=== PATIENT | female | born 1950 | race Caucasian/White ===

== ENCOUNTER 2016-10-30 10:05 | Inpatient (IN) | payer MEDICARE, OTHER ==
[~2016-10-30] VITALS: Ht 160 cm; Wt 65.7 kg
[2016-10-30] VITALS (8 sets, daily range): BP systolic 121–140; BP diastolic 51–55; PULSE 63–75; RESP 18–22; TEMP 98.4; Ht 160 cm; Wt 65.7 kg
[2016-10-30] MEDS ORDERED: morphine 4 MG/ML VIAL IV STA (10:34)
[2016-10-30] MEDS ORDERED: ONDANSETRON 4 MG INJ IV STA (10:34)
[2016-10-30 10:42] LABS: ADD SCAN DIFF NO
[2016-10-30 10:54] LABS: BASOPHILS % 0.1 % (0.0-2.0); HEMATOCRIT 36.5 % (37.0-47.0); HEMOGLOBIN 12.4 g/dl (12.0-16.0); LYMPHOCYTES # 0.9 10^3/ul (0.8-2.9); LYMPHOCYTES % 6.1 % (15.0-51.0); MEAN CORPUSCULAR HEMOGLOBIN 29.4 pg (29.0-33.0); MEAN CORPUSCULAR VOLUME 86.5 fl (82.0-101.0); MONOCYTE # 1.4 10^3/ul (0.3-0.9); MONOCYTES % 8.8 % (0.0-11.0); NEUTROPHIL # 13.1 10^3/ul (1.6-7.5); NEUTROPHILS % 84.4 % (39.0-77.0); PLATELET COUNT 282 10^3/UL (140-415); RED BLOOD COUNT 4.22 10^6/ul (4.20-5.40); RED CELL DISTRIBUTION WIDTH 13.2 % (11.5-14.5); WHITE BLOOD COUNT 15.5 10^3/ul (4.8-10.8)
[2016-10-30 11:00] LABS: CHLORIDE 99 mmol/L (97-110); POTASSIUM 3.5 mmol/L (3.5-5.1); SODIUM 139 mmol/L (135-144)
--- NOTE | 2016-10-30 11:01 | RADRPT ---
PROCEDURE: XR Chest. CLINICAL INDICATION: Chest Pain. TECHNIQUE: PA and Lateral views of the chest were obtained. COMPARISON: None. FINDINGS: The soft tissues are normal. The bony elements are normal. The heart is borderline enlarged. The cardiomediastinal silhouette and hilar structures are normal. The pulmonary vasculature is normal. A therosclerotic calcification is present in the aortic arch. The lungs are clear. The costophrenic a ngles are normal. IMPRESSION: 1. Borderline cardiomegaly. 2. Atherosclerosis of the aortic arch. 3. No evidence of active cardiopulmonary disease. RPTAT:AAJJ Physician Dinesh Date Time Electronically viewed and signed by Néstor Nj Physician on 10/30/2016 11:01 /
[2016-10-30 11:02] LABS: CREATININE 0.72 mg/dl (0.44-1.00)
[2016-10-30 11:03] LABS: ANION GAP 20 (8-16); BLOOD UREA NITROGEN 19 mg/dl (7-20); CALCIUM 9.2 mg/dl (8.4-10.2); CARBON DIOXIDE 24 mmol/L (21-31); GLUCOSE 137 mg/dl (70-220)
[2016-10-30] MEDS ORDERED: EZET10TA3 PO (11:19)
[2016-10-30] MEDS ORDERED: AMLO-147 PO (11:20)
[2016-10-30] MEDS ORDERED: CHOL100062 PO (11:20)
[2016-10-30] MEDS ORDERED: SERT-165 PO (11:20)
[2016-10-30] MEDS ORDERED: LOSA100T7 PO (11:20)
[2016-10-30] MEDS ORDERED: SIMV20TA PO (11:21)
[2016-10-30] MEDS ORDERED: ASPI-664 PO (11:23)
[2016-10-30] MEDS ORDERED: CARV3.1260 PO (11:24)
[2016-10-30] MEDS ORDERED: OMEP20CA16 PO (11:24)
[2016-10-30] MEDS ORDERED: TRAM-40 PO (11:26)
[2016-10-30 11:34] LABS: TROPONIN-I < 0.012 ng/ml (0.00-0.12)
--- NOTE | 2016-10-30 13:43 | RADRPT ---
PROCEDURE: MRI Brain without contrast. CLINICAL INDICATION: Headache, weakness TECHNIQUE: Routine MRI of the brain performed without intravenous contrast. COMPARISON: None FINDINGS: Diffusion: No evidence of acute infarct, recent ischemia, or recent ictal focus. Hemorrhage: No evidence of focal hematoma or subarachnoid hemorrhage. No evidence for remote blood d egradation products. Mass effect/midline shift: None. Parenchymal volume: Appears within normal limits for the patient's age. Ventricular system: Concordant with the degree of parenchymal volume. Parenchymal signal changes: Nonspecific small scattered areas of T2 and FLAIR signal hyperintensity measuring a few millimeters are seen in the supratentorial white matter most commonly due to chronic moderate microvascular ischemic changes. Differential considerations include sequelae of migraines; prior parenchymal injury from infectious or inflammatory/demyelinating process; vasculopathy. Well- circumscribed T2 hyperintense focus within the left lentiform nucleus likely representing a dilated perivascular space. Partially empty sella configuration is noted. Vasculature: Appropriate flow voids suggesting patency of the central arterial system and visualize d dural venous sinuses. Paranasal sinuses: Clear. Mastoid air cells: Clear. Calvarium: Within normal limits. Extracranial soft tissues: Within normal limits. IMPRESSION: No evidence of diffusion signal abnormalities to suggest acute infarct, recent ischemia, or recent i ctal focus. Nonspecific small scattered areas of T2 and FLAIR signal hyperintensity measuring a few millimeters are seen in the supratentorial white matter most commonly due to chronic moderate microvascular isch emic changes. Differential considerations include sequelae of migraines; prior parenchymal injury fr om infectious or inflammatory/demyelinating process; vasculopathy. RPTAT: AADD .Eddi Campbell MD, MD Date Time Electronically viewed and signed by .Eddi Campbell MD, MD on 10/30/2016 13:43 .B/
--- NOTE | 2016-10-30 15:12 | RADRPT ---
PROCEDURE: MR Cervical Spine contrast. CLINICAL INDICATION: Headache. Right-sided weakness. Status post epidural injection. TECHNIQUE: Multiplanar multisequence MRI of the cervical spine was performed before and following t he intravenous administration of 10 cc of Magnevist. COMPARISON: There are no similar studies submitted for comparison. FINDINGS: There is reversal of the cervical lordosis suggesting muscle spasm and/or degenerative changes. The vertebral body heights are maintained. There is normal alignment. There is no destructive osseous lesion.There is no abnormal bone marrow edema. There is disk desiccation from C2-C3 to C6-C7. There is right dorsolateral T2 hyperintense signal within the spinal cord at the mid C2 level sugges ting edema. At the mid C3 level and there is a focal ovoid T2 hyperintense region extending to the right dorsolateral spinal canal surface (image 9 series 6). Caudal to these regions and there is lo ng segment irregular long segment T2 hypointense signal within the central aspect of the spinal cord eccentric to the right from the C3-C4 level to the T5-T6 levels. This is suggestive of intramedull phong spinal cord hemorrhage. There is also intramedullary edema surrounding the spinal cord hemorrhag e. There is no abnormal spinal cord enhancement. C2-C3 : There is a 1 mm circumferential disk osteophyte complex without spinal canal or bilateral fo raminal stenosis. C3-C4 : There is mild to moderate disk space narrowing. There is a 2 mm circumferential disk osteop hyte complex minimally indenting the spinal cord without spinal canal stenosis. There is moderate l eft facet arthropathy without bilateral foraminal stenosis. C4-C5 : There is mild to moderate disk space narrowing with trace retrolisthesis with a 2 mm broad-b ased disk osteophyte complex contacting the spinal cord without spinal canal stenosis. There is mil d bilateral facet arthropathy and bilateral uncovertebral hypertrophy causing mild to moderate bilat eral foraminal stenosis. C5-C6 : There is mild to moderate disk space narrowing. There is a 2 mm right paracentral disk/oste ophyte complex minimally indenting the spinal cord without spinal canal stenosis. There is mild lef t facet arthropathy and bilateral uncovertebral hypertrophy causing moderate to severe left without right foraminal stenosis. This likely affects the exiting left C6 nerve root. C6-C7 : There is trace retrolisthesis with a 2 mm left paracentral disk/osteophyte complex without s laurie canal stenosis. There is mild bilateral facet arthropathy and bilateral uncovertebral hypertro phy causing moderate to severe left with mild right foraminal stenosis. This likely affects the exi ting left C7 nerve root. C7-T1 : There is no disk herniation or spinal canal stenosis. There is moderate left with mild right facet arthropathy with bilateral uncovertebral hypertrophy causing moderate left without right fora mary stenosis. The paravertebral musculature are within normal limits. IMPRESSION: 1. Right dorsolateral spinal cord edema at the mid C2 level with focal T2 hyperintense signal extend ing to the along the right dorsolateral spinal cord at the mid C3 level. There is long segment intra medullary T2 hypointense signal from the C3-C4 to the T5-T6 level most compatible with spinal cord h emorrhage with surrounding spinal cord edema. 2. Multilevel bilateral foraminal stenosis affecting the exiting left C6 and left C7 nerve roots as detailed above. 3. No abnormal bone marrow edema. 4. No abnormal spinal cord enhancement. Further findings as detailed above. These findings were discussed with Dr. Jn Heller at 03:10 p.m. on October 30, 2016. RPTAT: HVF .Buddy Jules MD, Date Time Electronically viewed and signed by .Buddy Jules MD, on 10/30/2016 15:12 .F/
--- NOTE | 2016-10-30 15:19 | RADRPT ---
PROCEDURE: MR Thoracic Spine contrast. CLINICAL INDICATION: Headache. Right-sided weakness. Status post epidural injection. TECHNIQUE: Multiplanar multisequence MRI of the thoracic spine performed was performed before and following the intravenous administration of 10 cc of Magnevist. COMPARISON: There are no similar studies submitted for comparison. MRI of the cervical spine report from the same day. FINDINGS: There is preservation of the normal thoracic kyphosis. The vertebral body heights are maintained. There is normal alignment. There is no destructive osseous lesion.There is no abnormal bone marrow edema. The discs are normal in height and signal. There is intramedullary T2 hypointense signal as detailed on the MRI of the cervical spine report mo st compatible with spinal cord hemorrhage. There is surrounding intramedullary edema. There is no abnormal spinal cord enhancement. There is no epidural hematoma. There are multilevel minimal disk bulges without spinal canal or bilateral foraminal stenosis. The paraspinal musculature are within normal limits. IMPRESSION: 1. Please refer to the MRI of the cervical spine report. 2. No acute compression fracture or abnormal bone marrow edema. 3. Multilevel minimal disk bulges without spinal canal or bilateral foraminal stenosis. Further findings as detailed above. RPTAT: HVF .Buddy Jules MD, MD Date Time Electronically viewed and signed by .Buddy Jules MD, on 10/30/2016 15:19 .F/
[2016-10-30 15:33] LABS: INR 1.06; PROTIME 13.8 Sec (12.2-14.2); PT RATIO 1.1
--- NOTE | 2016-10-30 15:43 | ERA ---
ER Documentation Chief Complaint Date/Time DATE: 10/30/16 TIME: 10:15 Chief Complaint right side numbness after receiving cervical epidural steroid injection HPI 66-year-old female with history of hypertension, hyperlipidemia and chronic neck pain presents the ED 1 day status post cervical epidural injection complaining of numbness and weakness to her right upper extremity, chest and leg. She awoke after the procedure yesterday with these symptoms but was told it would resolve within 24 hours but they have persisted. Denies chest pain or palpitations. No shortness of breath or cough. No abdominal pain, nausea vomiting. No fevers or chills. ROS All systems reviewed and are negative except as per history of present illness. Medications Home Meds Reported Medications Tramadol Hcl* (Ultram*) 50 Mg Tablet, 50 MG PO Q6H Y for PAIN, TAB 10/30/16 Omeprazole* (Omeprazole*) 20 Mg Capsule.dr, 20 MG PO DAILY, #30 CAP 10/30/16 Carvedilol* (Carvedilol*) 3.125 Mg Tablet, 3.125 MG PO BID, #60 TAB 10/30/16 Aspirin* (Aspirin* EC) 81 Mg Tablet.dr, 81 MG PO DAILY, TAB 10/30/16 Simvastatin* (Zocor*) 20 Mg Tablet, 20 MG PO QHS, #30 TAB 10/30/16 Cholecalciferol* (Vitamin D3*) 1,000 Unit Tablet, 1000 UNIT PO DAILY, TAB 10/30/16 Sertraline Hcl* (Sertraline Hcl*) 100 Mg Tablet, 100 MG PO DAILY, #30 TAB 10/30/16 Losartan Potassium* (Losartan Potassium*) 100 Mg Tablet, 100 MG PO DAILY, TAB 10/30/16 Amlodipine Besylate* (Amlodipine Besylate*) 10 Mg Tablet, 10 MG PO DAILY, #30 TAB 10/30/16 Ezetimibe* (Zetia*) 10 Mg Tablet, 10 MG PO HS, TAB 10/30/16 Allergies Allergies: Coded Allergies: No Known Allergy (Unverified , 07/22/14) PMhx/Soc Reviewed in chart History of Surgery: Yes (right shoulder surgery) Hx Cardiac Disorders: Yes (HTN; cholesterolemia) Hx Psychiatric Problems: Yes (depression) Hx Miscellaneous Medical Probl: Yes (ARTHRITIS ; sciatica; gastric ulcer) Hx Alcohol Use: No Hx Substance Use: No Hx Tobacco Use: No Smoking Status: Never smoker FmHx Not relevant to presenting complaint Physical Exam Vitals Vital Signs Date Time Temp Pulse Resp B/P Pulse Ox O2 Delivery O2 Flow Rate FiO2 10/30/16 12:25 66 18 144/54 97 Room Air 10/30/16 10:30 68 19 137/67 98 Room Air 10/30/16 10:15 98.0 73 19 141/51 99 Physical Exam Const: Alert, moderate to severe distress. Head: Atraumatic Eyes: Normal Conjunctiva ENT: Normal External Ears, Nose and Mouth. Neck: Diffuse posterior tenderness. No step-off. No erythema or induration. Resp: Breath sounds are equal and clear to auscultation bilaterally Cardio: Regular rate and rhythm, no murmurs Abd: Soft, non tender, non distended. Normal bowel sounds Skin: No petechiae or rashes Back: No midline or flank tenderness Ext: No cyanosis, or edema Neur: Awake and alert. Cranial nerves II through XII are grossly intact. Motor strength: distal upper extremity 4/5 and proximal upper extremity 1/5. Right lower extremity motor strength 4/5. Decreased sensation right upper extremity right hemithorax . Psych: Patient appears anxious but not depressed. Result Diagram: 10/30/16 1040 10/30/16 1040 Results 24 hrs Laboratory Tests Test 10/30/16 10:40 White Blood Count 15.510^3/ul Red Blood Count 4.2210^6/ul Hemoglobin 12.4g/dl Hematocrit 36.5% Mean Corpuscular Volume 86.5fl Mean Corpuscular Hemoglobin 29.4pg Mean Corpuscular Hemoglobin Concent 34.0g/dl Red Cell Distribution Width 13.2% Platelet Count 30012^3/UL Mean Platelet Volume 10.0fl Neutrophils % 84.4% Lymphocytes % 6.1% Monocytes % 8.8% Eosinophils % 0.0% Basophils % 0.1% Nucleated Red Blood Cells % 0.0/100WBC Neutrophils # 13.110^3/ul Lymphocytes # 0.910^3/ul Monocytes # 1.410^3/ul Eosinophils # 0.010^3/ul Basophils # 0.010^3/ul Nucleated Red Blood Cells # 0.010^3/ul Prothrombin Time 13.8Sec Prothrombin Time Ratio 1.1 INR International Normalized Ratio 1.06 Activated Partial Thromboplast Time 25.0Sec Sodium Level 139mmol/L Potassium Level 3.5mmol/L Chloride Level 99mmol/L Carbon Dioxide Level 24mmol/L Anion Gap 20 Blood Urea Nitrogen 19mg/dl Creatinine 0.72mg/dl Glucose Level 137mg/dl Calcium Level 9.2mg/dl Troponin I < 0.012ng/ml Current Medications Medications (Trade) Dose Ordered Sig/Sharon Route PRN Reason Start Time Stop Time Status Last Admin Dose Admin Morphine Sulfate (morphine) 4 mg ONCE STAT IV 10/30/16 10:34 10/30/16 10:35 DC 10/30/16 10:52 Ondansetron HCl (Zofran Inj) 4 mg ONCE STAT IV 10/30/16 10:34 10/30/16 10:35 DC 10/30/16 10:52 Dexamethasone (Decadron) 10 mg ONCE ONCE IV 10/30/16 16:00 10/30/16 16:01 DC EKG: Time: 10: 37. Sinus rhythm. Ventricular rate 69, normal GA and QRS intervals. No acute ST segment elevation or depression. No axis deviation or ectopy. EP Impression: Normal EKG IMAGING: ROCEDURE: MRI Brain without contrast. CLINICAL INDICATION: Headache, weakness TECHNIQUE: Routine MRI of the brain performed without intravenous contrast. COMPARISON: None FINDINGS: Diffusion: No evidence of acute infarct, recent ischemia, or recent ictal focus. Hemorrhage: No evidence of focal hematoma or subarachnoid hemorrhage. No evidence for remote blood degradation products. Mass effect/midline shift: None. Parenchymal volume: Appears within normal limits for the patient's age. Ventricular system: Concordant with the degree of parenchymal volume. Parenchymal signal changes: Nonspecific small scattered areas of T2 and FLAIR signal hyperintensity measuring a few millimeters are seen in the supratentorial white matter most commonly due to chronic moderate microvascular ischemic changes. Differential considerations include sequelae of migraines; prior parenchymal injury from infectious or inflammatory/demyelinating process; vasculopathy. Well-circumscribed T2 hyperintense focus within the left lentiform nucleus likely representing a dilated perivascular space. Partially empty sella configuration is noted. Vasculature: Appropriate flow voids suggesting patency of the central arterial system and visualized dural venous sinuses. Paranasal sinuses: Clear. Mastoid air cells: Clear. Calvarium: Within normal limits. Extracranial soft tissues: Within normal limits. IMPRESSION: No evidence of diffusion signal abnormalities to suggest acute infarct, recent ischemia, or recent ictal focus. Nonspecific small scattered areas of T2 and FLAIR signal hyperintensity measuring a few millimeters are seen in the supratentorial white matter most commonly due to chronic moderate microvascular ischemic changes. Differential considerations include sequelae of migraines; prior parenchymal injury from infectious or inflammatory/demyelinating process; vasculopathy. RPTAT: AADD .Eddi Campbell MD, MD Date Time Electronically viewed and signed by .Eddi Campbell MD, MD on 10/30/2016 13:43 .B/ PROCEDURE: MR Cervical Spine contrast. CLINICAL INDICATION: Headache. Right-sided weakness. Status post epidural injection. TECHNIQUE: Multiplanar multisequence MRI of the cervical spine was performed before and following the intravenous administration of 10 cc of Magnevist. COMPARISON: There are no similar studies submitted for comparison. FINDINGS: There is reversal of the cervical lordosis suggesting muscle spasm and/or degenerative changes. The vertebral body heights are maintained. There is normal alignment. There is no destructive osseous lesion.There is no abnormal bone marrow edema. There is disk desiccation from C2-C3 to C6-C7. There is right dorsolateral T2 hyperintense signal within the spinal cord at the mid C2 level suggesting edema. At the mid C3 level and there is a focal ovoid T2 hyperintense region extending to the right dorsolateral spinal canal surface (image 9 series 6). Caudal to these regions and there is long segment irregular long segment T2 hypointense signal within the central aspect of the spinal cord eccentric to the right from the C3-C4 level to the T5-T6 levels. This is suggestive of intramedullary spinal cord hemorrhage. There is also intramedullary edema surrounding the spinal cord hemorrhage. There is no abnormal spinal cord enhancement. C2-C3 : There is a 1 mm circumferential disk osteophyte complex without spinal canal or bilateral foraminal stenosis. C3-C4 : There is mild to moderate disk space narrowing. There is a 2 mm circumferential disk osteophyte complex minimally indenting the spinal cord without spinal canal stenosis. There is moderate left facet arthropathy without bilateral foraminal stenosis. C4-C5 : There is mild to moderate disk space narrowing with trace retrolisthesis with a 2 mm broad-based disk osteophyte complex contacting the spinal cord without spinal canal stenosis. There is mild bilateral facet arthropathy and bilateral uncovertebral hypertrophy causing mild to moderate bilateral foraminal stenosis. C5-C6 : There is mild to moderate disk space narrowing. There is a 2 mm right paracentral disk/osteophyte complex minimally indenting the spinal cord without spinal canal stenosis. There is mild left facet arthropathy and bilateral uncovertebral hypertrophy causing moderate to severe left without right foraminal stenosis. This likely affects the exiting left C6 nerve root. C6-C7 : There is trace retrolisthesis with a 2 mm left paracentral disk/ osteophyte complex without spinal canal stenosis. There is mild bilateral facet arthropathy and bilateral uncovertebral hypertrophy causing moderate to severe left with mild right foraminal stenosis. This likely affects the exiting left C7 nerve root. C7-T1 : There is no disk herniation or spinal canal stenosis. There is moderate left with mild right facet arthropathy with bilateral uncovertebral hypertrophy causing moderate left without right foraminal stenosis. The paravertebral musculature are within normal limits. IMPRESSION: 1. Right dorsolateral spinal cord edema at the mid C2 level with focal T2 hyperintense signal extending to the along the right dorsolateral spinal cord at the mid C3 level. There is long segment intramedullary T2 hypointense signal from the C3-C4 to the T5-T6 level most compatible with spinal cord hemorrhage with surrounding spinal cord edema. 2. Multilevel bilateral foraminal stenosis affecting the exiting left C6 and left C7 nerve roots as detailed above. 3. No abnormal bone marrow edema. 4. No abnormal spinal cord enhancement. Further findings as detailed above. These findings were discussed with Dr. Merrick Bonds at 03:10 p.m. on October 30, 2016. RPTAT: HVF .Buddy Jules MD, Date Time Electronically viewed and signed by .Buddy Jules MD, on 10/30/2016 15:12 .F/ PROCEDURE: MR Thoracic Spine contrast. CLINICAL INDICATION: Headache. Right-sided weakness. Status post epidural injection. TECHNIQUE: Multiplanar multisequence MRI of the thoracic spine performed was performed before and following the intravenous administration of 10 cc of Magnevist. COMPARISON: There are no similar studies submitted for comparison. MRI of the cervical spine report from the same day. FINDINGS: There is preservation of the normal thoracic kyphosis. The vertebral body heights are maintained. There is normal alignment. There is no destructive osseous lesion.There is no abnormal bone marrow edema. The discs are normal in height and signal. There is intramedullary T2 hypointense signal as detailed on the MRI of the cervical spine report most compatible with spinal cord hemorrhage. There is surrounding intramedullary edema. There is no abnormal spinal cord enhancement. There is no epidural hematoma. There are multilevel minimal disk bulges without spinal canal or bilateral foraminal stenosis. The paraspinal musculature are within normal limits. IMPRESSION: 1. Please refer to the MRI of the cervical spine report. 2. No acute compression fracture or abnormal bone marrow edema. 3. Multilevel minimal disk bulges without spinal canal or bilateral foraminal stenosis. Further findings as detailed above. RPTAT: HVF .Buddy Jules MD, MD Date Time Electronically viewed and signed by .Buddy Jules MD, MD on 10/30/2016 15:19 .F/ Procedures/MDM DOCUMENTS REVIEWED: ED nurse, prior ED. MEDICAL DECISION MAKIN-year-old female with history of hypertension, hyperlipidemia and chronic neck pain presents the ED 1 day status post cervical epidural injection complaining of numbness and weakness to her right upper extremity, chest and leg. 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 Counseled patient and family regarding diagnosis, diagnostic results and plan for admission. CALLS/CONSULTS: Time 15:14, Dr. Arango, Recommends Decadron and ICU admission. CALLS/CONSULTS: Time 15:14, Dr. Levokic. PATIENT CARE TRANSITIONED: Time: 15:55, Dr. Brown. Critical Care Time: 35 minutes Treatments/Evaluations: Close monitoring and treatment of unstable vital signs, cardiorespiratory, and neurologic status, while maintaining tight balance of fluid, respiratory, and cardiac interventions. This time includes discussing the case with the patient and the patient's family. This time does not include all procedures stated elsewhere in this record. This time also includes reviewing old records, labs and radiological studies. This time includes examining and re-examining the patient. Additionally, this time also includes arranging care with admitting and consulting physicians. Departure Diagnosis: Primary Impression: Traumatic spinal cord hemorrhage Additional Impressions: Status post epidural steroid injection Essential hypertension Condition: Critical MERRICK BONDS MD October 30, 2016 15:38
[2016-10-30] MEDS ORDERED: DEXAMETHASONE 10 MG/ML 1 ML INJ IV ONE (16:00)
--- NOTE | 2016-10-30 17:17 | HP ---
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 Right-sided numbness and weakness likely secondary to 2, C3-C4 to the T5-T6 Spinal cord hemorrhage with surrounding spinal cord edema likely 2/2 injection 2. High blood pressure: Controlled 3. Dyslipidemia: Statin and Zetia 4. GERD: Stable 5. Chronic depression: Stable 6. Leukocytosis likely steroid-induced Plan: * Admit ICU for further workup and close management * Will start Dexamethasone 4mg IV q6H * Per ER, neurosurgical consultation has been obtained with Dr. Dalton, will await and follow recommendations * Continue all home medications * Further interventions will depend on clinical course Prophylaxis: SCDs and PPI HPI/ROS Admit Date/Time Admit Date/Time 10/30/16 Hx of Present Illness 66-year-old female with history of hypertension, hyperlipidemia and chronic neck pain presents the ED 1 day status post cervical epidural injection complaining of numbness and weakness to her right upper extremity, chest and leg. She awoke after the procedure yesterday with these symptoms but was told it would resolve within 24 hours but they have persisted. Denies chest pain or palpitations. No shortness of breath or cough. No abdominal pain, nausea vomiting. No fevers or chills. ROS 12 point review if systems was done and pertinent findings are as noted. ROS: CONSTITUTIONAL: lethargy HEENT: denies headaches, any vertigo, any sore throat or rhinorrhea. Eyes: No double or blurred vision or eye pain. CARDIOVASCULAR: no chest discomfort, chest pain, irregular rhythm, tachycardia or diaphoresis. RESPIRATORY: denies cough or shortness of breath or wheezing. GASTROINTESTINAL: The patient denies any nausea, vomiting, diarrhea or abdominal pain. GENITOURINARY: denies dysuria, frequency, urgency or hematuria. MUSCULOSKELETAL: chronic arthralgias SKIN: denies rash or jaundice NEUROLOGIC: see HPI PSYCHIATRIC: denies any suicidal ideation. substance abuse. PMH/Family/Social Past Medical History Medical History: GI bleed, high cholesterol, hypertension, other (depression) Past Surgical History * R shoulder surgery Social History Alcohol Use: none Smoking Status: Never smoker Drug Use: none Exam/Review of Systems Vital Signs Vitals Vital Signs Date Time Temp Pulse Resp B/P Pulse Ox O2 Delivery O2 Flow Rate FiO2 10/30/16 15:00 98.4 62 18 130/56 97 Room Air Exam Exam GENERAL: Patient is alert, oriented x 3, in no apparent distress; does not appear acutely or chronically ill. Patient is able to sit up unassisted.Patient makes good eye contact, is conversant, interactive, coherent. Patient appears calm and comfortable and is able to follow commands. HEENT: Oropharynx is clear. There is no carotid bruit, no masses. Patient's pupils are equal, round and reactive to light bilaterally. Extraocular motions are intact. There is no scleral icterus. There is no facial asymmetry. NECK: Supple. LUNGS: Clear to auscultation bilaterally with good air entry. No Wheezes or crackles. HEART: S1, S2. No murmur, gallops or rubs. Regular rate and rhythm. ABDOMEN: Soft, nontender. Normoactive bowel sounds. There are no stigmata of chronic liver disease. BACK: no costovertebral angle tenderness. GENITOURINARY: Deferred. EXTREMITIES: No edema. There is no cyanosis, clubbing. There are 2+ pulses bilaterally distally. NEUROLOGIC: Motor strength: distal upper extremity 4/5 and proximal upper extremity 1/5. Right lower extremity motor strength 4/5. Decreased sensation right upper extremity right hemithorax . SKIN: Otherwise, unremarkable. Labs Result Diagram: 10/30/16 1040 10/30/16 1040 Procedures Procedures Laboratory Tests Test 10/30/16 10:40 10/30/16 15:25 White Blood Count 15.510^3/ul Red Blood Count 4.2210^6/ul Hemoglobin 12.4g/dl Hematocrit 36.5% Mean Corpuscular Volume 86.5fl Mean Corpuscular Hemoglobin 29.4pg Mean Corpuscular Hemoglobin Concent 34.0g/dl Red Cell Distribution Width 13.2% Platelet Count 51680^3/UL Mean Platelet Volume 10.0fl Neutrophils % 84.4% Lymphocytes % 6.1% Monocytes % 8.8% Eosinophils % 0.0% Basophils % 0.1% Nucleated Red Blood Cells % 0.0/100WBC Neutrophils # 13.110^3/ul Lymphocytes # 0.910^3/ul Monocytes # 1.410^3/ul Eosinophils # 0.010^3/ul Basophils # 0.010^3/ul Nucleated Red Blood Cells # 0.010^3/ul Prothrombin Time 13.8Sec Prothrombin Time Ratio 1.1 INR International Normalized Ratio 1.06 Activated Partial Thromboplast Time 25.0Sec Sodium Level 139mmol/L Potassium Level 3.5mmol/L Chloride Level 99mmol/L Carbon Dioxide Level 24mmol/L Anion Gap 20 Blood Urea Nitrogen 19mg/dl Creatinine 0.72mg/dl Glucose Level 137mg/dl Calcium Level 9.2mg/dl Troponin I < 0.012ng/ml Platelet Func Collagen/Epinephrine 167Secs. Platelet Function Collagen/ADP Secs. PROCEDURE: XR Chest. CLINICAL INDICATION: Chest Pain. TECHNIQUE: PA and Lateral views of the chest were obtained. COMPARISON: None. FINDINGS: The soft tissues are normal. The bony elements are normal. The heart is borderline enlarged. The cardiomediastinal silhouette and hilar structures are normal. The pulmonary vasculature is normal. Atherosclerotic calcification is present in the aortic arch. The lungs are clear. The costophrenic angles are normal. IMPRESSION: 1. Borderline cardiomegaly. 2. Atherosclerosis of the aortic arch. 3. No evidence of active cardiopulmonary disease. RPTAT:AAJJ Physician Dinesh Date Time Electronically viewed and signed by Néstor Nj Physician on 10/30/2016 11:01 JM/ CC: MERRICK BONDS MD PROCEDURE: MR Cervical Spine contrast. IMPRESSION: 1. Right dorsolateral spinal cord edema at the mid C2 level with focal T2 hyperintense signal extending to the along the right dorsolateral spinal cord at the mid C3 level. There is long segment intramedullary T2 hypointense signal from the C3-C4 to the T5-T6 level most compatible with spinal cord hemorrhage with surrounding spinal cord edema. 2. Multilevel bilateral foraminal stenosis affecting the exiting left C6 and left C7 nerve roots as detailed above. 3. No abnormal bone marrow edema. 4. No abnormal spinal cord enhancement. Further findings as detailed above. These findings were discussed with Dr. Merrick Bonds at 03:10 p.m. on October 30, 2016. RPTAT: HVF .Buddy Jules MD, MD Date Time Electronically viewed and signed by .Buddy Jules MD, MD on 10/30/2016 15:12 .F/ CC: MERRICK BONDS MD PROCEDURE: MR Thoracic Spine contrast. IMPRESSION: 1. Please refer to the MRI of the cervical spine report. 2. No acute compression fracture or abnormal bone marrow edema. 3. Multilevel minimal disk bulges without spinal canal or bilateral foraminal stenosis. Further findings as detailed above. RPTAT: HVF .Buddy Jules MD, MD Date Time Electronically viewed and signed by .Buddy Jules MD, MD on 10/30/2016 15:19 PROCEDURE: MRI Brain without contrast. IMPRESSION: No evidence of diffusion signal abnormalities to suggest acute infarct, recent ischemia, or recent ictal focus. Nonspecific small scattered areas of T2 and FLAIR signal hyperintensity measuring a few millimeters are seen in the supratentorial white matter most commonly due to chronic moderate microvascular ischemic changes. Differential considerations include sequelae of migraines; prior parenchymal injury from infectious or inflammatory/demyelinating process; vasculopathy. TAD LÓPEZ October 30, 2016 17:11
[2016-10-30] MEDS ORDERED: DOCUSATE SODIUM 100 MG CAP PO PRN (17:30)
[2016-10-30] MEDS ORDERED: ONDANSETRON 4 MG INJ IV PRN (17:30)
[2016-10-30] MEDS: DEXAMETHASONE 4 MG/ML 1 ML INJ IV SCH ×2 (17:39→23:55)
[2016-10-30] MEDS: HYDROCODONE/APAP (5/325) TAB PO PRN (18:11)
[2016-10-30] MEDS: traMADol 50 MG TAB PO PRN (20:50)
[2016-10-30] MEDS: EZETIMIBE 10 MG TAB PO SCH (20:50)
[2016-10-30] MEDS: ATORVASTATIN 10 MG TAB PO SCH (20:51)
[2016-10-31] VITALS (21 sets, daily range): BP systolic 114–151; BP diastolic 49–78; PULSE 56–70; RESP 13–20
[2016-10-31] MEDS: HYDROCODONE/APAP (5/325) TAB PO PRN ×3 (04:45→22:45)
[2016-10-31] MEDS: PANTOPRAZOLE (EC) 40 MG TAB PO SCH (05:12)
[2016-10-31] MEDS: DEXAMETHASONE 4 MG/ML 1 ML INJ IV SCH ×3 (05:12→17:40)
[2016-10-31 05:16] LABS: ALBUMIN 4.2 g/dl (3.3-4.9); BILIRUBIN,INDIRECT 0.5 mg/dl (0-1.1); BILIRUBIN,TOTAL 0.5 mg/dl (0.2-1.3); CALCIUM 8.9 mg/dl (8.4-10.2); CREATININE 0.67 mg/dl (0.44-1.00); MAGNESIUM 2.3 mg/dl (1.7-2.5); TOTAL PROTEIN 7.6 g/dl (6.1-8.1)
[2016-10-31 05:46] LABS: THYROID STIMULATING HORMONE 1.74 MIU/L (0.465-4.680)
[2016-10-31] MEDS: AMLODIPINE 10 MG TAB PO SCH (08:22)
[2016-10-31] MEDS: CHOLECALCIFEROL 1,000 UNIT TAB PO SCH (08:22)
[2016-10-31] MEDS: SERTRALINE 100 MG TAB PO SCH (08:22)
[2016-10-31] MEDS: LOSARTAN 50 MG TAB PO SCH (08:23)
[2016-10-31] MEDS ORDERED: ASPIRIN (EC) 81 MG TAB PO SCH (09:00)
[2016-10-31] MEDS: traMADol 50 MG TAB PO PRN ×2 (10:57→21:06)
[2016-10-31 11:33] LABS: ADD SCAN DIFF NO
[2016-10-31 11:37] LABS: BASOPHILS % 0.1 % (0.0-2.0); HEMATOCRIT 36.8 % (37.0-47.0); HEMOGLOBIN 12.2 g/dl (12.0-16.0); LYMPHOCYTES # 0.7 10^3/ul (0.8-2.9); LYMPHOCYTES % 6.9 % (15.0-51.0); MEAN CORPUSCULAR HEMOGLOBIN 29.4 pg (29.0-33.0); MEAN CORPUSCULAR HGB CONC 33.2 g/dl (32.0-37.0); MEAN CORPUSCULAR VOLUME 88.7 fl (82.0-101.0); MEAN PLATELET VOLUME 10.8 fl (7.4-10.4); MONOCYTE # 0.4 10^3/ul (0.3-0.9); MONOCYTES % 3.5 % (0.0-11.0); NEUTROPHIL # 9.1 10^3/ul (1.6-7.5); NEUTROPHILS % 89.1 % (39.0-77.0); PLATELET COUNT 296 10^3/UL (140-415); RED BLOOD COUNT 4.15 10^6/ul (4.20-5.40); RED CELL DISTRIBUTION WIDTH 13.5 % (11.5-14.5); WHITE BLOOD COUNT 10.2 10^3/ul (4.8-10.8)
--- NOTE | 2016-10-31 12:26 | CONS ---
Date/Time of Note Date/Time of Note DATE: 10/31/16 TIME: 12:14 Assessment/Plan Assessment/Plan Additional Assessment/Plan IMP/PLAN: intramedullary hemorrhage, possibly iatrogenic. ? procedure performed (rhizotomy? epidural injection?). I did call Dr. Angel's office at and left a message for the doctor information architect to get more information about the procedure performed, but I have not heard back yet. Patient's symptoms are stable or improving. The patient was on a baby aspirin at the time of the procedure and this has been held. I would recommend avoiding any anti- coagulation. There is absolutely no role for any kind of neurosurgical intervention at the present time. The patient is cleared for transfer out of the ICU and to begin therapist evaluation/ ARU eval. Thank you. Consultation Date/Type/Reason Admit Date/Time 10/30/16 Date of Consultation: October 31, 2016 Type of Consultation: neurological surgery Reason for Consultation spinal cord hemorrhage Hx of Present Illness The patient is a 66 year female with a history of "spine injection" on Tuesday, October 29 at an outpatient center in [place]. The patient reports that immediately following the procedure she complained of intense pain at the injection site and right sided weakness and numbness (also on right side). She was subsequently discharged home. She presented to the ED last night with persistent complaints of RUE weakness and right sided numbness. MRI of the cervical spine shows intramedullary hemorrhage. The patient was admitted for close neurological observation to the ICU. Both strength and sensation have improved since admission. Past Medical History Medical History: GI bleed, high cholesterol, hypertension, other (depression) Social History Alcohol Use: none Smoking Status: Never smoker Drug Use: none Exam/Review of Systems Vital Signs Vitals Vital Signs Date Time Temp Pulse Resp B/P Pulse Ox O2 Delivery O2 Flow Rate FiO2 10/31/16 10:00 70 15 147/66 97 Room Air 10/31/16 08:00 98.5 Intake and Output 10/30/16 10/30/16 10/31/16 15:00 23:00 07:00 Intake Total 100 ml 200 ml Output Total 250 ml 500 ml Balance -150 ml -300 ml Exam On exam the patient is awake and alert, speech is fluent and appropriate. CN exam includes EOMI, Face= PERRL, TML. The patient is right handed. Motor exam is 5/5 LUE & LLE RUE 4/5 shoulder abduction, 4/5 biceps, 3/5 triceps, 2/5 wrist flesion, 0/5 wrist extension, 0/5 finger extension, 0/5 edge polisher. Sensation is intact to LT, pressure, and cold temperature bilaterally UE and LE. She may have allodynia left shoulder. No other dysesthesias noted. B/B intact (no complaints) Results Result Diagram: 10/31/16 0435 10/31/16 0435 Results 24 hrs Laboratory Tests Test 10/30/16 15:25 10/31/16 04:35 Platelet Func Collagen/Epinephrine 167 Platelet Function Collagen/ADP White Blood Count 10.2 # Red Blood Count 4.15 L Hemoglobin 12.2 Hematocrit 36.8 L Mean Corpuscular Volume 88.7 Mean Corpuscular Hemoglobin 29.4 Mean Corpuscular Hemoglobin Concent 33.2 Red Cell Distribution Width 13.5 Platelet Count 296 Mean Platelet Volume 10.8 H Neutrophils % 89.1 H Lymphocytes % 6.9 L Monocytes % 3.5 Eosinophils % 0.0 Basophils % 0.1 Nucleated Red Blood Cells % 0.0 Neutrophils # 9.1 H Lymphocytes # 0.7 L Monocytes # 0.4 Eosinophils # 0.0 Basophils # 0.0 Nucleated Red Blood Cells # 0.0 Sodium Level 136 Potassium Level 4.0 Chloride Level 103 Carbon Dioxide Level 26 Anion Gap 11 # Blood Urea Nitrogen 23 H Creatinine 0.67 Glucose Level 142 Calcium Level 8.9 Magnesium Level 2.3 Total Bilirubin 0.5 Direct Bilirubin 0.00 Indirect Bilirubin 0.5 Aspartate Amino Transf (AST/SGOT) 32 Alanine Aminotransferase (ALT/SGPT) 40 Alkaline Phosphatase 103 Total Protein 7.6 Albumin 4.2 Thyroid Stimulating Hormone (TSH) 1.740 Medications Medications Current Medications Amlodipine Besylate (Norvasc) 10 mg DAILY PO Last administered on 10/31/16 08: 22; Admin Dose 10 MG; Start 10/31/16 at 09:00 Carvedilol (Coreg) 3.125 mg BID PO Last administered on 10/31/16 08:23; Admin Dose 3.125 MG; Start 10/30/16 at 21:00 Cholecalciferol (Vitamin D) 1,000 unit DAILY PO Last administered on 10/31/16 08:22; Admin Dose 1,000 UNIT; Start 10/31/16 at 09:00 EZETIMIBE (Zetia) 10 mg HS PO Last administered on 10/30/16 20:50; Admin Dose 10 MG; Start 10/30/16 at 21:00 Losartan Potassium (Cozaar) 100 mg DAILY PO Last administered on 10/31/16 08:23 ; Admin Dose 100 MG; Start 10/31/16 at 09:00 Sertraline HCl (Zoloft) 100 mg DAILY PO Last administered on 10/31/16 08:22; Admin Dose 100 MG; Start 10/31/16 at 09:00 Tramadol HCl (Ultram) 50 mg Q6H PRN PO PAIN Last administered on 10/31/16 10:57 ; Admin Dose 50 MG; Start 10/30/16 at 17:30 Pantoprazole (Protonix Tab) 40 mg DAILY@06 PO Last administered on 10/31/16 05: 12; Admin Dose 40 MG; Start 10/31/16 at 06:00 Atorvastatin Calcium (Lipitor) 10 mg DAILY@21 PO Last administered on 10/30/16 20:51; Admin Dose 10 MG; Start 10/30/16 at 21:00 Dexamethasone (Decadron) 4 mg Q6 IV Last administered on 10/31/16 12:08; Admin Dose 4 MG; Start 10/30/16 at 18:00 Ondansetron HCl (Zofran Inj) 4 mg Q6H PRN IV NAUSEA AND/OR VOMITING; Start 10/30 at 17:30 Acetaminophen/ Hydrocodone Bitart ([place] (5/325)) 1 tab Q6H PRN PO pain Last administered on 10/31/16 04:45; Admin Dose 1 TAB; Start 10/30/16 at 17:30 Docusate Sodium (Colace) 200 mg DAILY PRN PO CONSTIPATION; Start 10/30/16 at 17: 30 DOROTEO MEREDITH MD October 31, 2016 12:25
--- NOTE | 2016-10-31 14:52 | PN ---
Date/Time of Note Date/Time of Note DATE: 10/31/16 TIME: 14:45 Assessment/Plan VTE Prophylaxis VTE Prophylaxis Intervention: SCD's Lines/Catheters IV Catheter Type (from Nrsg): Saline Lock Assessment/Plan Assessment/Plan 66-year-old female status post cervical epidural injection yesterday, (? indication ) with post procedure pain and r sided hemiparesis managed as follows : 1. Right-sided numbness and weakness likely secondary to 2, C3-C4 to the T5-T6 Spinal cord hemorrhage with surrounding spinal cord edema likely 2/2 injection 2. High blood pressure: Controlled 3. Dyslipidemia: Statin and Zetia 4. GERD: Stable 5. Chronic depression: Stable 6. Leukocytosis likely stress-induced Plan: * Appreciate Neurosurgical input, patient has been cleared for transfer out of ICU * Continue steroids for now . * Monitor closely. * Stat imaging and review if paresis worsens * No more aspirin or anticoagulation for now / will need neuro checks / PT and ARU eval * Continue all other home medications * Further interventions will depend on clinical course Prophylaxis: SCDs and PPI Subjective 24 Hr Interval Summary Free Text/Dictation Patient seen and examined. States she feels no change, but symptoms have not worsened. Patient seems better able to move R leg on observation Exam/Review of Systems Vital Signs Vitals Vital Signs Date Time Temp Pulse Resp B/P Pulse Ox O2 Delivery O2 Flow Rate FiO2 10/31/16 12:00 98.0 61 20 126/52 95 Room Air Intake and Output 10/30/16 10/30/16 10/31/16 14:59 22:59 06:59 Intake Total 100 ml 200 ml Output Total 250 ml 500 ml Balance -150 ml -300 ml Exam GENERAL: Patient is alert, oriented x 3, in no apparent distress; does not appear acutely or chronically ill. Patient is able to sit up unassisted.Patient makes good eye contact, is conversant, interactive, coherent. Patient appears calm and comfortable and is able to follow commands. HEENT: Oropharynx is clear. There is no carotid bruit, no masses. Patient's pupils are equal, round and reactive to light bilaterally. Extraocular motions are intact. There is no scleral icterus. There is no facial asymmetry. NECK: Supple. LUNGS: Clear to auscultation bilaterally with good air entry. No Wheezes or crackles. HEART: S1, S2. No murmur, gallops or rubs. Regular rate and rhythm. ABDOMEN: Soft, nontender. Normoactive bowel sounds. There are no stigmata of chronic liver disease. BACK: no costovertebral angle tenderness. GENITOURINARY: Deferred. EXTREMITIES: No edema. There is no cyanosis, clubbing. There are 2+ pulses bilaterally distally. NEUROLOGIC: Motor strength: distal upper extremity 4/5 and proximal upper extremity 1/5. Right lower extremity motor strength 4/5. Decreased sensation right upper extremity right hemithorax . SKIN: Otherwise, unremarkable. Results Result Diagram: 10/31/16 0435 10/31/16 0435 Results 24 hrs Laboratory Tests Test 10/30/16 15:25 10/31/16 04:35 Platelet Func Collagen/Epinephrine 167 Platelet Function Collagen/ADP White Blood Count 10.2 # Red Blood Count 4.15 L Hemoglobin 12.2 Hematocrit 36.8 L Mean Corpuscular Volume 88.7 Mean Corpuscular Hemoglobin 29.4 Mean Corpuscular Hemoglobin Concent 33.2 Red Cell Distribution Width 13.5 Platelet Count 296 Mean Platelet Volume 10.8 H Neutrophils % 89.1 H Lymphocytes % 6.9 L Monocytes % 3.5 Eosinophils % 0.0 Basophils % 0.1 Nucleated Red Blood Cells % 0.0 Neutrophils # 9.1 H Lymphocytes # 0.7 L Monocytes # 0.4 Eosinophils # 0.0 Basophils # 0.0 Nucleated Red Blood Cells # 0.0 Sodium Level 136 Potassium Level 4.0 Chloride Level 103 Carbon Dioxide Level 26 Anion Gap 11 # Blood Urea Nitrogen 23 H Creatinine 0.67 Glucose Level 142 Calcium Level 8.9 Magnesium Level 2.3 Total Bilirubin 0.5 Direct Bilirubin 0.00 Indirect Bilirubin 0.5 Aspartate Amino Transf (AST/SGOT) 32 Alanine Aminotransferase (ALT/SGPT) 40 Alkaline Phosphatase 103 Total Protein 7.6 Albumin 4.2 Thyroid Stimulating Hormone (TSH) 1.740 Medications Medications Current Medications Amlodipine Besylate (Norvasc) 10 mg DAILY PO Last administered on 10/31/16 08: 22; Admin Dose 10 MG; Start 10/31/16 at 09:00 Carvedilol (Coreg) 3.125 mg BID PO Last administered on 10/31/16 08:23; Admin Dose 3.125 MG; Start 10/30/16 at 21:00 Cholecalciferol (Vitamin D) 1,000 unit DAILY PO Last administered on 10/31/16 08:22; Admin Dose 1,000 UNIT; Start 10/31/16 at 09:00 EZETIMIBE (Zetia) 10 mg HS PO Last administered on 10/30/16 20:50; Admin Dose 10 MG; Start 10/30/16 at 21:00 Losartan Potassium (Cozaar) 100 mg DAILY PO Last administered on 10/31/16 08:23 ; Admin Dose 100 MG; Start 10/31/16 at 09:00 Sertraline HCl (Zoloft) 100 mg DAILY PO Last administered on 10/31/16 08:22; Admin Dose 100 MG; Start 10/31/16 at 09:00 Tramadol HCl (Ultram) 50 mg Q6H PRN PO PAIN Last administered on 10/31/16 10:57 ; Admin Dose 50 MG; Start 10/30/16 at 17:30 Pantoprazole (Protonix Tab) 40 mg DAILY@06 PO Last administered on 10/31/16 05: 12; Admin Dose 40 MG; Start 10/31/16 at 06:00 Atorvastatin Calcium (Lipitor) 10 mg DAILY@21 PO Last administered on 10/30/16 20:51; Admin Dose 10 MG; Start 10/30/16 at 21:00 Dexamethasone (Decadron) 4 mg Q6 IV Last administered on 10/31/16 12:08; Admin Dose 4 MG; Start 10/30/16 at 18:00 Ondansetron HCl (Zofran Inj) 4 mg Q6H PRN IV NAUSEA AND/OR VOMITING; Start 10/30 at 17:30 Acetaminophen/ Hydrocodone Bitart ([place] (5/325)) 1 tab Q6H PRN PO pain Last administered on 10/31/16 14:27; Admin Dose 1 TAB; Start 10/30/16 at 17:30 Docusate Sodium (Colace) 200 mg DAILY PRN PO CONSTIPATION Last administered on 10/31/16 14:26; Admin Dose 200 MG; Start 10/30/16 at 17:30 TAD LÓPEZ October 31, 2016 14:52
[2016-10-31] MEDS: DOCUSATE SODIUM 100 MG CAP PO SCH (15:00)
[2016-10-31] MEDS: EZETIMIBE 10 MG TAB PO SCH (21:05)
[2016-10-31] MEDS: ATORVASTATIN 10 MG TAB PO SCH (21:05)
--- NOTE | 2016-10-31 23:14 | RADRPT ---
PROCEDURE: US Abdomen (right upper quadrant). CLINICAL INDICATION: Pain. TECHNIQUE: Multiple real-time longitudinal and transverse images of the right upper quadrant of th e abdomen were acquired utilizing a curved array transducer. Images were reviewed on a high-resoluti on PACS workstation. COMPARISON: None FINDINGS: The liver is normal in size and echogencity. There is no focal intrahepatic mass.. The gallbladder is normal. There is no pericholecystic fluid or gallbladder wall thickening or gallstones. No intr a or extrahepatic biliary dilatation is seen. The common bile duct measures 4.3 mm in maximal dimen helga. The visualized portions of the pancreas are unremarkable with obscuration of the tail of the pancreas. No free fluid is identified. Visualized abdominal aorta and IVC are unremarkable. The right kidney measures 10.3 cm in length. There is normal echogenicity within the right kidney. There is no perinephric fluid collection. No hydronephrosis, mass, or calculus is seen. IMPRESSION: 1. Negative examination. RPTAT: HMVK .Steve Olson MD, MD Date Time Electronically viewed and signed by .Steve Olson MD, MD on 10/31/2016 23:13 .K/
[2016-11-01] MEDS: DEXAMETHASONE 4 MG/ML 1 ML INJ IV SCH ×4 (00:24→18:31)
[2016-11-01 00:35] VITALS: BP 124/58; PULSE 59; RESP 16
[2016-11-01] MEDS: HYDROCODONE/APAP (5/325) TAB PO PRN ×3 (05:44→19:34)
[2016-11-01] MEDS: PANTOPRAZOLE (EC) 40 MG TAB PO SCH (05:44)
[2016-11-01 05:55] VITALS: BP 134/64; PULSE 55; RESP 18
[2016-11-01 07:31] LABS: ADD SCAN DIFF NO
[2016-11-01 07:41] LABS: BASOPHILS % 0.1 % (0.0-2.0); HEMATOCRIT 36.4 % (37.0-47.0); HEMOGLOBIN 12.2 g/dl (12.0-16.0); LYMPHOCYTES # 0.8 10^3/ul (0.8-2.9); MEAN CORPUSCULAR HEMOGLOBIN 28.8 pg (29.0-33.0); MEAN CORPUSCULAR HGB CONC 33.5 g/dl (32.0-37.0); MEAN CORPUSCULAR VOLUME 86.1 fl (82.0-101.0); MEAN PLATELET VOLUME 10.1 fl (7.4-10.4); MONOCYTE # 0.6 10^3/ul (0.3-0.9); MONOCYTES % 6.1 % (0.0-11.0); NEUTROPHIL # 8.6 10^3/ul (1.6-7.5); NEUTROPHILS % 85.1 % (39.0-77.0); PLATELET COUNT 304 10^3/UL (140-415); RED BLOOD COUNT 4.23 10^6/ul (4.20-5.40); WHITE BLOOD COUNT 10.1 10^3/ul (4.8-10.8)
[2016-11-01 07:52] VITALS: BP 132/61; RESP 55
[2016-11-01 08:01] LABS: POTASSIUM 4.1 mmol/L (3.5-5.1)
[2016-11-01 08:03] LABS: CREATININE 0.61 mg/dl (0.44-1.00)
[2016-11-01 08:04] LABS: CALCIUM 8.6 mg/dl (8.4-10.2)
[2016-11-01] MEDS: LOSARTAN 50 MG TAB PO SCH (09:36)
[2016-11-01] MEDS: DOCUSATE SODIUM 100 MG CAP PO SCH (09:37)
[2016-11-01] MEDS: AMLODIPINE 10 MG TAB PO SCH (09:38)
[2016-11-01] MEDS: SERTRALINE 100 MG TAB PO SCH (09:38)
[2016-11-01] MEDS: CHOLECALCIFEROL 1,000 UNIT TAB PO SCH (09:38)
[2016-11-01 20:07] VITALS: BP 132/63; RESP 19
[2016-11-01] MEDS: ATORVASTATIN 10 MG TAB PO SCH (20:48)
[2016-11-01] MEDS: EZETIMIBE 10 MG TAB PO SCH (20:48)
[2016-11-01] MEDS ORDERED: MAGNESIUM HYDROXIDE 30ML CUP PO PRN (22:00)
[2016-11-01] MEDS ORDERED: MAGNESIUM HYDROXIDE 30ML CUP PO ONE (22:00)
[2016-11-02] MEDS: DEXAMETHASONE 4 MG/ML 1 ML INJ IV SCH ×3 (00:29→11:13)
[2016-11-02] MEDS: PANTOPRAZOLE (EC) 40 MG TAB PO SCH (05:48)
[2016-11-02 07:47] VITALS: BP 138/63; RESP 18
[2016-11-02] MEDS: LOSARTAN 50 MG TAB PO SCH (08:49)
[2016-11-02] MEDS: DOCUSATE SODIUM 100 MG CAP PO SCH (08:49)
[2016-11-02] MEDS: SERTRALINE 100 MG TAB PO SCH (08:49)
[2016-11-02] MEDS: CHOLECALCIFEROL 1,000 UNIT TAB PO SCH (08:50)
[2016-11-02] MEDS: AMLODIPINE 10 MG TAB PO SCH (08:50)
[2016-11-02] MEDS ORDERED: SENNA TAB PO SCH (09:00)
[2016-11-02 10:03] LABS: ADD SCAN DIFF NO
[2016-11-02 10:11] LABS: BASOPHILS % 0.1 % (0.0-2.0); HEMOGLOBIN 13.2 g/dl (12.0-16.0); LYMPHOCYTES # 0.9 10^3/ul (0.8-2.9); LYMPHOCYTES % 9.5 % (15.0-51.0); MEAN CORPUSCULAR HEMOGLOBIN 28.8 pg (29.0-33.0); MEAN CORPUSCULAR VOLUME 87.1 fl (82.0-101.0); MEAN PLATELET VOLUME 10.5 fl (7.4-10.4); MONOCYTE # 0.5 10^3/ul (0.3-0.9); MONOCYTES % 5.6 % (0.0-11.0); NEUTROPHIL # 7.9 10^3/ul (1.6-7.5); NEUTROPHILS % 83.6 % (39.0-77.0); PLATELET COUNT 361 10^3/UL (140-415); RED BLOOD COUNT 4.59 10^6/ul (4.20-5.40); RED CELL DISTRIBUTION WIDTH 13.2 % (11.5-14.5); WHITE BLOOD COUNT 9.4 10^3/ul (4.8-10.8)
[2016-11-02 10:39] LABS: CALCIUM 8.6 mg/dl (8.4-10.2); CREATININE 0.62 mg/dl (0.44-1.00); POTASSIUM 3.8 mmol/L (3.5-5.1)
[2016-11-02] MEDS: traMADol 50 MG TAB PO PRN (11:14)
--- NOTE | 2016-11-02 12:45 | PDOCDIS ---
Discharge Instructions CONDITION Patient Condition: Good HOME CARE INSTRUCTIONS: Special Diet: LOW CHOL/FAT ACTIVITY: Activity Restrictions: Slowly Increase Activity Rest between Activity Avoid heavy lifting Special Exercises FOLLOW UP/APPOINTMENTS Appointments Follow up with neurosurgery BENJAMIN ARRIAGA MD November 02, 2016 12:45
--- NOTE | 2016-11-02 13:48 | PN ---
Date/Time of Note Date/Time of Note DATE: 11/01/16 TIME: 13:46 Assessment/Plan VTE Prophylaxis VTE Prophylaxis Intervention: SCD's Lines/Catheters IV Catheter Type (from Nrs): Saline Lock Urinary Cath still in place: No Assessment/Plan Chief Complaint/Hosp Course Assessment/Plan 66-year-old female status post cervical epidural injection yesterday, (? indication ) with post procedure pain and r sided hemiparesis managed as follows : 1. Right-sided numbness and weakness likely secondary to 2, C3-C4 to the T5-T6 Spinal cord hemorrhage with surrounding spinal cord edema likely 2/2 injection 2. High blood pressure: Controlled 3. Dyslipidemia: Statin and Zetia 4. GERD: Stable 5. Chronic depression: Stable 6. Leukocytosis likely stress-induced Plan: * Appreciate Neurosurgical input, * Continue steroids for now . * Monitor closely. * Stat imaging and review if paresis worsens * No more aspirin or anticoagulation for now / will need neuro checks / PT and ARU eval * Continue all other home medications * Further interventions will depend on clinical course Prophylaxis: SCDs and PPI Problems: Subjective 24 Hr Interval Summary Free Text/Dictation Patient continues to complain of having right upper extremity weakness No nausea vomiting diarrhea Denies of any chest pain Exam/Review of Systems Vital Signs Vitals Vital Signs Date Time Temp Pulse Resp B/P Pulse Ox O2 Delivery O2 Flow Rate FiO2 11/02/16 07:47 98.6 52 18 138/63 95 11/01/16 05:55 Room Air Intake and Output 11/01/16 11/01/16 11/02/16 15:00 23:00 07:00 Intake Total 1020 ml 300 ml Output Total 800 ml Balance 1020 ml -500 ml Exam General: The patient is well-developed, Not in acute distress. HEENT: Atraumatic, normocephalic. The pupils are equal and round . Neck: Supple with full range of motion. Chest: Normal expansion of the thorax during inspiration Lungs: Clear to auscultation bilaterally Heart: Normal S1-S2, Regular rhythm and rate. Abdomen: Soft , nontender, nondistended , bowel sounds are present. Extremities: Right upper extremity weakness with flexion of digits, no edema no cyanosis Neurologic: Normal mental status,The patient is awake, alert and oriented . Results Result Diagram: 11/02/16 0936 11/02/16 0936 Results 24 hrs Laboratory Tests Test 11/02/16 09:36 White Blood Count 9.4 Red Blood Count 4.59 Hemoglobin 13.2 Hematocrit 40.0 Mean Corpuscular Volume 87.1 Mean Corpuscular Hemoglobin 28.8 L Mean Corpuscular Hemoglobin Concent 33.0 Red Cell Distribution Width 13.2 Platelet Count 361 Mean Platelet Volume 10.5 H Neutrophils % 83.6 H Lymphocytes % 9.5 L Monocytes % 5.6 Eosinophils % 0.0 Basophils % 0.1 Nucleated Red Blood Cells % 0.0 Neutrophils # 7.9 H Lymphocytes # 0.9 Monocytes # 0.5 Eosinophils # 0.0 Basophils # 0.0 Nucleated Red Blood Cells # 0.0 Sodium Level 133 L Potassium Level 3.8 Chloride Level 101 Carbon Dioxide Level 22 Anion Gap 14 Blood Urea Nitrogen 26 H Creatinine 0.62 Glucose Level 187 Calcium Level 8.6 BENJAMIN ARRIAGA MD November 02, 2016 13:47
--- NOTE | 2016-11-02 14:47 | DS ---
DATE OF ADMISSION: 10/30/2016 DATE OF DISCHARGE: 11/02/2016 TOWEL FOLDER: Sigifredo Hubbard MD DISCHARGE DIAGNOSES: 1. Right-sided numbness and weakness. 2. 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 3. Essential hypertension. 4. Dyslipidemia. 5. Gastroesophageal reflux disease. 6. Chronic depression. 7. Leukocytosis, stress-induced. MEDICATIONS: 1. Amlodipine. 2. Coreg. 3. Vitamin D. 4. Zetia. 5. Losartan. 6. Omeprazole. 7. Sertraline. 8. Simvastatin. 9. Tramadol. DISCONTINUED MEDICATION: Aspirin. ALLERGIES: NO KNOWN DRUG ALLERGIES. HOSPITAL COURSE: This is a 66-year-old female with past medical history of diabetes mellitus, hyper tension, dyslipidemia, chronic back pain who had a spinal injection on Tuesday10/29/2016 as outpatie nt in [facility]. The patient reported that immediately following the procedure, she complained of having intense pain at the injection site and right-sided weakness and numbness. She was subsequen tly discharged home. She presented to the emergency room on 10/31/2016, secondary to persistent com plaint of right upper extremity numbness and right-sided weakness. MRI of the cervical spine showed intramedullary hemorrhage. The patient was admitted for close neurological observation to ICU. Ne urosurgery was consulted. The patient was seen and evaluated by neurosurgery and the anticoagulatio n and aspirin were placed on hold. As per neurosurgery, there was no bleeding and no role for any kind of neurosurgical intervention at this time. The patient was transferred from ICU to [facility] where she has been seen and evaluated by the acute rehab personnel, and the patient has been a ccepted to acute rehab for further evaluation. Regarding hypertension, the patient has been continu ed on her home medications of Coreg and Losartan. Her blood pressure has been well controlled. For her major depression, the patient has been continued on sertraline. Regarding dyslipidemia, the pa breanna has been placed on statin and Zetia. Her pain has been well managed. The patient has been ab le to ambulate with assistance. Her labs: WBC 9.4, hemoglobin 13.3, hematocrit 40, platelets 361. Sodium 133, potassium 3.8, chloride 101, bicarbonate 24, BUN 26, creatinine 0.62, glucose 187, calc ium 8.6. CONDITION AT TIME OF DISCHARGE: Stable. Dictated By: BENJAMIN GROVE/[place] Conf#: [id number] DID#: [id number]
== END 2016-11-02 13:35 | DRG 919 ==
LOC: E/R 10:05 → ICU 16:08 → MS2 10-31 18:15
PROVIDERS: ADMIT Family Medicine; ATTEND Family Medicine
DX: G97.51 Postprocedural hemorrhage of a nervous system organ or structure following a nervous system procedure (principal); G95.19 Other vascular myelopathies; G81.91 Hemiplegia, unspecified affecting right dominant side; F32.9 Major depressive disorder, single episode, unspecified; I10 Essential (primary) hypertension; E78.5 Hyperlipidemia, unspecified; K21.9 Gastro-esophageal reflux disease without esophagitis; R20.0 Anesthesia of skin; R53.1 Weakness; Y84.8 Other medical procedures as the cause of abnormal reaction of the patient, or of later complication, without mention of misadventure at the time of the procedure; Y75.8 Miscellaneous neurological devices associated with adverse incidents, not elsewhere classified; Y92.019 Unspecified place in single-family (private) house as the place of occurrence of the external cause
CPT/HCPCS: 70551; 71010; 72142; 72147; 76705; 80048; 80076; 83735; 84443; 84484; 85025; 85576; 85610; 85730; 87081; 96374; 96375; 97162; J1100; J2270; J2405

== ENCOUNTER 2016-11-02 13:28 | Inpatient (IN) | payer MEDICARE, OTHER ==
[~2016-11-02] VITALS: Ht 160 cm; Wt 65.7 kg
[~2016-11-02 13:28] MED LIST: AMLO-147 PO; ASPI-664 PO; CARV3.1260 PO; CHOL100062 PO; EZET10TA3 PO; LOSA100T7 PO; OMEP20CA16 PO; SERT-165 PO; SIMV20TA PO; TRAM-40 PO
[2016-11-02 14:30] VITALS: BP 136/63; PULSE 60; RESP 18
[2016-11-02] MEDS ORDERED: MAGNESIUM HYDROXIDE 30ML CUP PO PRN (16:30)
[2016-11-02] MEDS ORDERED: ACETAMINOPHEN 325 MG TAB PO PRN (16:30)
[2016-11-02] MEDS ORDERED: BISACODYL 10 MG SUPP PR PRN (16:30)
[2016-11-02 16:55] LABS: ADD UMIC NO; URINE BILIRUBIN (Dip) NEGATIVE (NEGATIVE); URINE BLOOD (Dip) NEGATIVE (NEGATIVE); URINE COLOR LT. YELLOW (YELLOW); URINE GLUCOSE (Dip) NEGATIVE (NEGATIVE); URINE KETONES (Dip) NEGATIVE (NEGATIVE); URINE LEUKOCYTE ESTERASE (Dip) NEGATIVE (NEGATIVE); URINE NITRITE (Dip) NEGATIVE (NEGATIVE); URINE TOTAL PROTEIN (Dip) NEGATIVE (NEGATIVE); URINE UROBILINOGEN (Dip) 0.2 E.U./dL (0.1-1.0)
[2016-11-02] MEDS: LACTULOSE 30ML CUP PO PRN (17:36)
[2016-11-02 20:00] VITALS: BP 123/58; RESP 18
[2016-11-02] MEDS ORDERED: SENNA TAB PO SCH (21:00)
[2016-11-02] MEDS: SENNA TAB PO SCH (21:00)
[2016-11-02] MEDS: DEXAMETHASONE 4 MG TAB PO SCH (21:12)
[2016-11-02] MEDS: ATORVASTATIN 10 MG TAB PO SCH (21:12)
[2016-11-02] MEDS: EZETIMIBE 10 MG TAB PO SCH (21:12)
[2016-11-02] MEDS: HYDROCODONE/APAP (5/325) TAB PO PRN (21:13)
[2016-11-03] MEDS: DEXAMETHASONE 4 MG TAB PO SCH ×3 (06:01→20:59)
[2016-11-03] MEDS: PANTOPRAZOLE (EC) 40 MG TAB PO SCH (06:01)
[2016-11-03 06:04] VITALS: BP 123/58; PULSE 54
[2016-11-03 06:23] LABS: ADD SCAN DIFF NO
[2016-11-03 06:36] LABS: BASOPHILS % 0.1 % (0.0-2.0); HEMATOCRIT 38.4 % (37.0-47.0); HEMOGLOBIN 12.6 g/dl (12.0-16.0); LYMPHOCYTES # 1.3 10^3/ul (0.8-2.9); LYMPHOCYTES % 12.5 % (15.0-51.0); MEAN CORPUSCULAR HEMOGLOBIN 28.7 pg (29.0-33.0); MEAN CORPUSCULAR HGB CONC 32.8 g/dl (32.0-37.0); MEAN CORPUSCULAR VOLUME 87.5 fl (82.0-101.0); MEAN PLATELET VOLUME 10.1 fl (7.4-10.4); MONOCYTES % 9.8 % (0.0-11.0); NEUTROPHIL # 7.7 10^3/ul (1.6-7.5); NEUTROPHILS % 76.3 % (39.0-77.0); PLATELET COUNT 336 10^3/UL (140-415); RED BLOOD COUNT 4.39 10^6/ul (4.20-5.40); RED CELL DISTRIBUTION WIDTH 13.1 % (11.5-14.5); WHITE BLOOD COUNT 10.1 10^3/ul (4.8-10.8)
[2016-11-03 06:57] LABS: ALBUMIN 3.5 g/dl (3.3-4.9)
[2016-11-03 06:59] LABS: CREATININE 0.6 mg/dl (0.44-1.00)
[2016-11-03 07:00] LABS: ALBUMIN/GLOBULIN RATIO 1.12; BILIRUBIN,INDIRECT 0.5 mg/dl (0-1.1); BILIRUBIN,TOTAL 0.5 mg/dl (0.2-1.3); CALCIUM 8.4 mg/dl (8.4-10.2); TOTAL PROTEIN 6.6 g/dl (6.1-8.1)
[2016-11-03 07:36] VITALS: BP 141/66; RESP 18
[2016-11-03] MEDS: LOSARTAN 50 MG TAB PO SCH (09:00)
[2016-11-03] MEDS ORDERED: DOCUSATE SODIUM 100 MG CAP PO SCH (09:00)
[2016-11-03] MEDS: AMLODIPINE 10 MG TAB PO SCH (09:00)
[2016-11-03] MEDS: SENNA TAB PO SCH ×2 (09:20→20:59)
[2016-11-03] MEDS: DOCUSATE SODIUM 100 MG CAP PO SCH (09:20)
[2016-11-03] MEDS: SERTRALINE 100 MG TAB PO SCH (09:20)
[2016-11-03] MEDS: CHOLECALCIFEROL 1,000 UNIT TAB PO SCH (09:20)
--- NOTE | 2016-11-03 10:55 | CONS ---
Date/Time of Note Date/Time of Note DATE: 11/03/16 TIME: 10:55 Consult Date/Type/Reason Admit Date/Time November 02, 2016 at 13:56 Initial Consult Date Objective Vital Signs Date Time Temp Pulse Resp B/P Pulse Ox O2 Delivery O2 Flow Rate FiO2 11/03/16 07:36 98.6 51 18 141/66 97 11/02/16 14:30 Room Air Intake and Output 11/02/16 11/02/16 11/03/16 15:00 23:00 07:00 Intake Total 840 ml 950 ml Output Total 250 ml Balance 590 ml 950 ml Results/Medications Result Diagram: 11/03/16 0600 11/03/16 0600 Results 24 hrs Laboratory Tests Test 11/02/16 15:40 11/03/16 06:00 Urine Color LT. YELLOW Urine Clarity CLEAR Urine pH 7.0 Urine Specific [place] 1.010 Urine Ketones NEGATIVE Urine Nitrite NEGATIVE Urine Bilirubin NEGATIVE Urine Urobilinogen 0.2 E.U./dL Urine Leukocyte Esterase NEGATIVE Urine Hemoglobin NEGATIVE Urine Glucose NEGATIVE Urine Total Protein NEGATIVE White Blood Count 10.1 Red Blood Count 4.39 Hemoglobin 12.6 Hematocrit 38.4 Mean Corpuscular Volume 87.5 Mean Corpuscular Hemoglobin 28.7 L Mean Corpuscular Hemoglobin Concent 32.8 Red Cell Distribution Width 13.1 Platelet Count 336 Mean Platelet Volume 10.1 Neutrophils % 76.3 Lymphocytes % 12.5 L Monocytes % 9.8 Eosinophils % 0.0 Basophils % 0.1 Nucleated Red Blood Cells % 0.0 Neutrophils # 7.7 H Lymphocytes # 1.3 Monocytes # 1.0 H Eosinophils # 0.0 Basophils # 0.0 Nucleated Red Blood Cells # 0.0 Sodium Level 137 Potassium Level 4.0 Chloride Level 100 Carbon Dioxide Level 25 Anion Gap 16 Blood Urea Nitrogen 26 H Creatinine 0.60 Glucose Level 121 # Calcium Level 8.4 Total Bilirubin 0.5 Direct Bilirubin 0.00 Indirect Bilirubin 0.5 Aspartate Amino Transf (AST/SGOT) 27 Alanine Aminotransferase (ALT/SGPT) 56 Alkaline Phosphatase 78 Total Protein 6.6 Albumin 3.5 Globulin 3.10 Albumin/Globulin Ratio 1.12 Medications Current Medications Amlodipine Besylate (Norvasc) 10 mg DAILY PO ; Start 11/03/16 at 09:00 Atorvastatin Calcium (Lipitor) 10 mg DAILY@21 PO Last administered on 11/02/16 21:12; Admin Dose 10 MG; Start 11/02/16 at 21:00 Carvedilol (Coreg) 3.125 mg BID PO Last administered on 11/02/16 21:14; Admin Dose 3.125 MG; Start 11/02/16 at 21:00 Cholecalciferol (Vitamin D) 1,000 unit DAILY PO Last administered on 11/03/16 09:20; Admin Dose 1,000 UNIT; Start 11/03/16 at 09:00 Docusate Sodium (Colace) 200 mg DAILY PO Last administered on 11/03/16 09:20; Admin Dose 200 MG; Start 11/03/16 at 09:00 EZETIMIBE (Zetia) 10 mg HS PO Last administered on 11/02/16 21:12; Admin Dose 10 MG; Start 11/02/16 at 21:00 Acetaminophen/ Hydrocodone Bitart ([place] (5/325)) 1 tab Q6H PRN PO pain Last administered on 11/02/16 21:13; Admin Dose 1 TAB; Start 11/02/16 at 15:30 Losartan Potassium (Cozaar) 100 mg DAILY PO ; Start 11/03/16 at 09:00 Pantoprazole (Protonix Tab) 40 mg DAILY@06 PO Last administered on 11/03/16 06 :01; Admin Dose 40 MG; Start 11/03/16 at 06:00 Senna (Senokot) 2 tab BID PO Last administered on 11/03/16 09:20; Admin Dose 2 TAB; Start 11/02/16 at 21:00 Sertraline HCl (Zoloft) 100 mg DAILY PO Last administered on 11/03/16 09:20; Admin Dose 100 MG; Start 11/03/16 at 09:00 Tramadol HCl (Ultram) 50 mg Q6H PRN PO PAIN; Start 11/02/16 at 15:30 Dexamethasone (Decadron) 4 mg Q8 PO Last administered on 11/03/16 06:01; Admin Dose 4 MG; Start 11/02/16 at 22:00 Acetaminophen (Tylenol Tab) 650 mg Q4H PRN PO PAIN AND OR ELEVATED TEMP; Start 11/02/16 at 16:30 Bisacodyl (Dulcolax Supp) 10 mg DAILY PRN [place] CONSTIPATION; Start 11/02/16 at 16: 30 Magnesium Hydroxide (Milk Of Mag) 30 ml BID PRN PO CONSTIPATION; Start 11/02/16 at 16:30 Lactulose (Enulose) 20 gm DAILY PRN PO CONSTIPATION Last administered on t 17:36; Admin Dose 20 GM; Start 11/02/16 at 16:30 Gabapentin (Neurontin) 100 mg BID PO ; Start 11/03/16 at 21:00 KLAUDIA STEVENSON MD November 03, 2016 10:55
--- NOTE | 2016-11-03 12:06 | CONS ---
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 ACTIVE COMORBIDITIES: 1. Acute pain syndrome. 2. Neuropathic pain. 3. Hypertension. 4. Gastroesophageal reflux disease. 5. Leukocytosis. 6. History of gastrointestinal bleed. 7. Diabetes mellitus. 8. Impairments in self-care and mobility. HISTORY OF PRESENT ILLNESS: The patient is a pleasant 66-year-old right-handed female who had unde rgone a "spine injection" on 10/29/2016 as an outpatient. The patient noted significant pain and ri ght-sided weakness after the procedure. The patient was discharged home; however, noted increasing weakness and numbness. She presented to the emergency room where MRI of cervical spine demonstrated intramedullary hemorrhage. The patient was admitted for close neurological observation. She did r eceive a neurosurgical evaluation and the patient was felt to not need neurosurgical intervention at this time. The patient has been cleared to transfer to the rehabilitation unit for comprehensive i nterdisciplinary rehab care. FUNCTIONAL HISTORY: Prior to recent events, she was independent in self-care tasks and mobility. C urrently, the patient requires moderate assist for self-care and mobility tasks. I have reviewed the preadmission screen and the patient's current functional status is consistent wi th the preadmission screen. SOCIAL HISTORY: The patient lives at home with her and hopes to return there upon discharge . PAST MEDICAL HISTORY: 1. Hypertension. 2. Hyperlipidemia. 3. Chronic neck pain. 4. Status post recent cervical epidural injection. CURRENT MEDICATIONS: 1. Norvasc 10 mg p.o. daily. 2. Lipitor 10 mg p.o. daily. 3. Coreg 3.125 mg p.o. b.i.d. 4. Vitamin D. 5. Zetia 10 mg p.o. at bedtime. 6. Colace 200 mg p.o. daily. 7. Cozaar 100 mg p.o. daily. 8. Protonix 40 mg p.o. daily. 9. Senokot 2 tabs p.o. b.i.d. 10. Zoloft 100 mg p.o. daily. 11. Ultram p.r.n. ALLERGIES: THE PATIENT WITH NO KNOWN DRUG ALLERGIES. PHYSICAL EXAMINATION: VITAL SIGNS: The patient is currently afebrile with stable vital signs. HEENT: Extraocular motions intact. Oropharynx clear. NECK: Supple. LUNGS: Clear anteriorly. CARDIAC: S1, S2. ABDOMEN: Soft, nontender, positive bowel sounds. NEUROLOGIC: She is awake, alert and oriented x3. She will follow simple 1-step commands. She demo nstrates good strength in the left upper and lower extremity. She has 1+ to minus strength in the r ight upper extremity. She has antigravity strength in the right lower extremity. PLAN: The patient has been admitted for comprehensive interdisciplinary acute rehab and is anticipa shandra to tolerate 3 hours of daily therapy in divided doses for at least 5/7 days a week. Treatment p stef will include: 1. Physical therapy to focus on bed mobility, transfers, and household ambulation with the goal of having the patient reach standby assist level. 2. Occupational therapy to focus on hygiene, grooming, dressing, bathing, and toileting activities with goal of having the patient reach standby assist level. 3. Rehabilitation nursing for carryover of therapeutic interventions, the goal of continent of cassius l and bladder, and the goal of pain adequately managed on oral medications. ESTIMATED LENGTH OF STAY: 14 days. DISPOSITION GOAL: Home. REHABILITATION BARRIER: Pain. INTERVENTION FOR BARRIER: Comprehensive interdisciplinary approach. I acknowledge that I performed a full physical examination on this patient within 24 hours of admiss ion to the rehabilitation unit. I believe the patient is a good candidate for comprehensive interdi sciplinary rehab care and is anticipated to make reasonable goals in a reasonable period of time as outlined above. Dictated By: KLAUDIA GARCIA/[place] Conf#: [id number] DID#: [id number]
[2016-11-03] MEDS: traMADol 50 MG TAB PO PRN (13:36)
--- NOTE | 2016-11-03 14:29 | CONS ---
DATE OF ADMISSION: 11/02/2016 DATE OF CONSULTATION: 11/03/2016 TYPE OF CONSULTATION: Pulmonary. REASON FOR ADMISSION: Continuing physical therapy and rehabilitation. HISTORY OF PRESENT ILLNESS: This is a 66-year-old lady who had undergone spine injection in early as an outpatient. She was noted to have significant pain after the procedure with associated num bness and weakness and presented to the emergency room where she was found to have intramedullary he morrhage. She was evaluated by neurosurgery. No intervention was needed; however, she has had sign ificant right arm weakness, decreased mobility, now being admitted for continuing care. PAST MEDICAL HISTORY: Gastroesophageal reflux disease, hypertension, hyperlipidemia, and diabetes m kalani. MEDICATIONS: Include 1. Norvasc. 2. Lipitor. 3. Coreg. 4. Vitamin D. 5. Zetia. 6. Colace. 7. Cozaar 8. Protonix. 9. Senokot. 10. Zoloft. 11. Ultram. ALLERGIES: NO KNOWN ALLERGIES. SOCIAL HISTORY: Nonsmoker, no alcohol, no history of drug use. FAMILY HISTORY: Noncontributory. SYSTEMS REVIEW: A 12-point review of systems was negative other than that mentioned above. PHYSICAL EXAMINATION: GENERAL: Well-nourished, well-developed lady, comfortable at rest, no acute distress. VITAL SIGNS: Within normal limits. Moist mucous membranes. Pupils equal and reactive to light. NECK: Supple, no JVD or lymphadenopathy. CARDIAC: S1, S2, no added sounds or murmurs. CHEST: Diminished air entry bilaterally. ABDOMEN: Soft, nontender. No guarding or rebound. EXTREMITIES: No cyanosis, clubbing. NEUROLOGIC: She has right upper extremity weakness. LABORATORY DATA: Pending at time of this dictation. IMPRESSION AND PLAN: 1. 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 Will require continu ed physical therapy. 2. Hypertension. Continue current medications. 3. Diabetes mellitus. Continue current glycemic management. 4. DVT and GI prophylaxis. Dictated By: NANETTE PALOMARES/[place] Conf#: [id number] DID#: [id number]
--- NOTE | 2016-11-03 18:24 | CONS ---
DATE OF ADMISSION: 11/02/2016 DATE OF CONSULTATION: 11/03/2016 TYPE OF CONSULTATION: Psychological REFERRING PHYSICIAN: Larry Baez MD CONSULTING PSYCHOLOGIST: Eunice Olson, PhD REASON FOR CONSULTATION: This consultation was requested by Dr. Effie Baez in order to evaluate the cognitive and emotional functioning of this patient related to her present medical condition. HISTORY OF PRESENT ILLNESS: The patient is a 66-year-old female. She had a back problem and receiv ed an epidural injection. The patient did feel then numbness and weakness secondary to the injectio n. The patient was dealing with her inability to function as a result. The patient was cleared [facility] and then transferred to the acute rehabilitation unit for acute multidisciplinary rehabilitat ion. The patient does have numerous other medical problems. The patient also admits to having a lo ng-term issue with depression. The patient's daughter was present during the consultation with the patient's permission. The interview was conducted in both Malaysian and Wallisian with the help of both the daughter and the interviewer using both Malaysian and Wallisian to interview the patient. FAMILY/SOCIAL HISTORY: The patient lives in an apartment in [place] with her and daughter and her daughter's . The patient does want to return there after discharge. MEDICATIONS: The patient is currently takin. Zoloft 100 mg daily. 2. Neurontin 100 mg b.i.d. SUBSTANCE USE: The patient reports that she does not smoke. The patient reports that she does not use alcohol or other drugs. MENTAL STATUS EXAMINATION: APPEARANCE: The patient was seen in bed. She is of average height and overweight. The patient wea rs glasses and is right-handed. BEHAVIOR: The patient was cooperative during the consultation. The patient did try to answer all q uestions presented to her by the interviewer. MOOD AND AFFECT: The patient's mood appears to be depressed. Affect does appear to be anxious. PERCEPTION: The patient reports no hallucinations or delusions. The patient was alert to person, place, situation and time. MEMORY AND COGNITION: The patient's memory and cognition were basically intact. She was able to na me the hospital. She was able to name the month and the year. She was able to do 1 serial 7 subtra ction from 100, but then made an error. The patient was initially unable to say who the President o f the [place], but then came up with [place]. The patient could not say who the governor of the state is or who the mayor of the city is. Overall, the patient's memory and cognition appear to be relatively intact. INTELLIGENCE: Intelligence appears to fall in the average range. INSIGHT: Fair. JUDGMENT: Fair. THOUGHT CONTENT: The patient is very concerned about her present medical condition. The patient is depressed and frustrated by this. The patient reports that she cannot sleep and that she has no ap petite. The patient does say that she is anxious. DISCUSSION: The patient can likely benefit from some cognitive/behavioral psychotherapy while she i s on the unit. This psychotherapy would focus on her underlying frustration regarding her depressio n. DIAGNOSTIC IMPRESSION: F33.1 major depressive disorder, recurrent, moderate. Thank you very much, Dr. Effie Baez, for referring this individual. Please do not hesitate to ca ll if you have additional questions. Dictated By: EUNICE OLSON PHD MOLLY/[place] Conf#: [id number] DID#: [id number]
[2016-11-03 20:00] VITALS: BP 123/58; RESP 18
[2016-11-03] MEDS: ATORVASTATIN 10 MG TAB PO SCH (20:58)
[2016-11-03] MEDS: EZETIMIBE 10 MG TAB PO SCH (20:58)
[2016-11-03] MEDS: GABAPENTIN 100 MG CAP PO SCH (20:59)
[2016-11-03] MEDS: HYDROCODONE/APAP (5/325) TAB PO PRN (21:00)
[2016-11-04] MEDS: PANTOPRAZOLE (EC) 40 MG TAB PO SCH (05:53)
[2016-11-04] MEDS: DEXAMETHASONE 4 MG TAB PO SCH ×3 (05:53→21:12)
[2016-11-04 07:30] VITALS: BP 143/67; RESP 18
[2016-11-04] MEDS: DOCUSATE SODIUM 100 MG CAP PO SCH (08:19)
[2016-11-04] MEDS: AMLODIPINE 10 MG TAB PO SCH (08:21)
[2016-11-04] MEDS: LOSARTAN 50 MG TAB PO SCH (08:21)
[2016-11-04] MEDS: GABAPENTIN 100 MG CAP PO SCH ×2 (08:21→21:12)
[2016-11-04] MEDS: SENNA TAB PO SCH ×2 (08:21→21:12)
[2016-11-04] MEDS: CHOLECALCIFEROL 1,000 UNIT TAB PO SCH (08:22)
[2016-11-04] MEDS: SERTRALINE 100 MG TAB PO SCH (08:22)
--- NOTE | 2016-11-04 11:38 | CONS ---
Date/Time of Note Date/Time of Note DATE: 11/04/16 TIME: 11:37 Consult Date/Type/Reason Admit Date/Time November 02, 2016 at 13:56 Subjective Reports pain improved Objective pulm-cta abd-soft min assist ambulation Vital Signs Date Time Temp Pulse Resp B/P Pulse Ox O2 Delivery O2 Flow Rate FiO2 11/03/16 20:00 97.8 57 18 123/58 95 11/02/16 14:30 Room Air Intake and Output 11/03/16 11/03/16 11/04/16 15:00 23:00 07:00 Intake Total 720 ml 900 ml Output Total 200 ml Balance 520 ml 900 ml Results/Medications Result Diagram: 11/03/16 0600 11/03/16 0600 Medications Current Medications Amlodipine Besylate (Norvasc) 10 mg DAILY PO Last administered on 11/04/16 08: 21; Admin Dose 10 MG; Start 11/03/16 at 09:00 Atorvastatin Calcium (Lipitor) 10 mg DAILY@21 PO Last administered on 20:58; Admin Dose 10 MG; Start 11/02/16 at 21:00 Carvedilol (Coreg) 3.125 mg BID PO Last administered on 11/03/16 21:00; Admin Dose 3.125 MG; Start 11/02/16 at 21:00 Cholecalciferol (Vitamin D) 1,000 unit DAILY PO Last administered on 11/04/16 08:22; Admin Dose 1,000 UNIT; Start 11/03/16 at 09:00 Docusate Sodium (Colace) 200 mg DAILY PO Last administered on 11/04/16 08:19; Admin Dose 200 MG; Start 11/03/16 at 09:00 EZETIMIBE (Zetia) 10 mg HS PO Last administered on 11/03/16 20:58; Admin Dose 10 MG; Start 11/02/16 at 21:00 Acetaminophen/ Hydrocodone Bitart ([place] (5/325)) 1 tab Q6H PRN PO pain Last administered on 11/03/16 21:00; Admin Dose 1 TAB; Start 11/02/16 at 15:30 Losartan Potassium (Cozaar) 100 mg DAILY PO Last administered on 11/04/16 08: 21; Admin Dose 100 MG; Start 11/03/16 at 09:00 Pantoprazole (Protonix Tab) 40 mg DAILY@06 PO Last administered on 11/04/16 05 :53; Admin Dose 40 MG; Start 11/03/16 at 06:00 Senna (Senokot) 2 tab BID PO Last administered on 11/04/16 08:21; Admin Dose 2 TAB; Start 11/02/16 at 21:00 Sertraline HCl (Zoloft) 100 mg DAILY PO Last administered on 11/04/16 08:22; Admin Dose 100 MG; Start 11/03/16 at 09:00 Tramadol HCl (Ultram) 50 mg Q6H PRN PO PAIN Last administered on 11/03/16 13: 36; Admin Dose 50 MG; Start 11/02/16 at 15:30 Dexamethasone (Decadron) 4 mg Q8 PO Last administered on 11/04/16 05:53; Admin Dose 4 MG; Start 11/02/16 at 22:00 Acetaminophen (Tylenol Tab) 650 mg Q4H PRN PO PAIN AND OR ELEVATED TEMP; Start 11/02/16 at 16:30 Bisacodyl (Dulcolax Supp) 10 mg DAILY PRN [place] CONSTIPATION; Start 11/02/16 at 16: 30 Magnesium Hydroxide (Milk Of Mag) 30 ml BID PRN PO CONSTIPATION; Start 11/02/16 at 16:30 Lactulose (Enulose) 20 gm DAILY PRN PO CONSTIPATION Last administered on 17:36; Admin Dose 20 GM; Start 11/02/16 at 16:30 Gabapentin (Neurontin) 100 mg BID PO Last administered on 11/04/16 08:21; Admin Dose 100 MG; Start 11/03/16 at 21:00 Assessment/Plan Additional Assessment/Plan Rehab- 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 Toleratingrehab program Acute pain syndrome;Neuropathic pain-continue current meds Hypertension. Gastroesophageal reflux disease. History of gastrointestinal bleed. Diabetes mellitus. KLAUDIA STEVENSON MD November 04, 2016 11:38
[2016-11-04] MEDS: traMADol 50 MG TAB PO PRN (13:03)
--- NOTE | 2016-11-04 13:32 | CONS ---
Date/Time of Note Date/Time of Note DATE: 11/04/16 TIME: 13:31 Consult Date/Type/Reason Admit Date/Time November 02, 2016 at 13:56 Initial Consult Date Type of Consultation: Internal medicine Subjective Patient comfortable at present no acute distress Ambulating with PT Objective Vital Signs Date Time Temp Pulse Resp B/P Pulse Ox O2 Delivery O2 Flow Rate FiO2 11/04/16 07:30 98.3 55 18 143/67 97 11/02/16 14:30 Room Air Intake and Output 11/03/16 11/03/16 11/04/16 15:00 23:00 07:00 Intake Total 720 ml 900 ml Output Total 200 ml Balance 520 ml 900 ml Exam PHYSICAL EXAMINATION: GENERAL: Well-nourished, well-developed lady, comfortable at rest, no acute distress. VITAL SIGNS: Within normal limits. Moist mucous membranes. Pupils equal and reactive to light. NECK: Supple, no JVD or lymphadenopathy. CARDIAC: S1, S2, no added sounds or murmurs. CHEST: Diminished air entry bilaterally. ABDOMEN: Soft, nontender. No guarding or rebound. EXTREMITIES: No cyanosis, clubbing. NEUROLOGIC: She has right upper extremity weakness. Results/Medications Result Diagram: 11/03/16 0600 11/03/16 0600 Medications Current Medications Amlodipine Besylate (Norvasc) 10 mg DAILY PO Last administered on 11/04/16 08: 21; Admin Dose 10 MG; Start 11/03/16 at 09:00 Atorvastatin Calcium (Lipitor) 10 mg DAILY@21 PO Last administered on 20:58; Admin Dose 10 MG; Start 11/02/16 at 21:00 Carvedilol (Coreg) 3.125 mg BID PO Last administered on 11/03/16 21:00; Admin Dose 3.125 MG; Start 11/02/16 at 21:00 Cholecalciferol (Vitamin D) 1,000 unit DAILY PO Last administered on 11/04/16 08:22; Admin Dose 1,000 UNIT; Start 11/03/16 at 09:00 Docusate Sodium (Colace) 200 mg DAILY PO Last administered on 11/04/16 08:19; Admin Dose 200 MG; Start 11/03/16 at 09:00 EZETIMIBE (Zetia) 10 mg HS PO Last administered on 11/03/16 20:58; Admin Dose 10 MG; Start 11/02/16 at 21:00 Acetaminophen/ Hydrocodone Bitart ([place] (5/325)) 1 tab Q6H PRN PO pain Last administered on 11/03/16 21:00; Admin Dose 1 TAB; Start 11/02/16 at 15:30 Losartan Potassium (Cozaar) 100 mg DAILY PO Last administered on 11/04/16 08: 21; Admin Dose 100 MG; Start 11/03/16 at 09:00 Pantoprazole (Protonix Tab) 40 mg DAILY@06 PO Last administered on 11/04/16 05 :53; Admin Dose 40 MG; Start 11/03/16 at 06:00 Senna (Senokot) 2 tab BID PO Last administered on 11/04/16 08:21; Admin Dose 2 TAB; Start 11/02/16 at 21:00 Sertraline HCl (Zoloft) 100 mg DAILY PO Last administered on 11/04/16 08:22; Admin Dose 100 MG; Start 11/03/16 at 09:00 Tramadol HCl (Ultram) 50 mg Q6H PRN PO PAIN Last administered on 11/04/16 13: 03; Admin Dose 50 MG; Start 11/02/16 at 15:30 Dexamethasone (Decadron) 4 mg Q8 PO Last administered on 11/04/16 13:03; Admin Dose 4 MG; Start 11/02/16 at 22:00 Acetaminophen (Tylenol Tab) 650 mg Q4H PRN PO PAIN AND OR ELEVATED TEMP; Start 11/02/16 at 16:30 Bisacodyl (Dulcolax Supp) 10 mg DAILY PRN [place] CONSTIPATION; Start 11/02/16 at 16: 30 Magnesium Hydroxide (Milk Of Mag) 30 ml BID PRN PO CONSTIPATION; Start 11/02/16 at 16:30 Lactulose (Enulose) 20 gm DAILY PRN PO CONSTIPATION Last administered on 17:36; Admin Dose 20 GM; Start 11/02/16 at 16:30 Gabapentin (Neurontin) 100 mg BID PO Last administered on 11/04/16 08:21; Admin Dose 100 MG; Start 11/03/16 at 21:00 Assessment/Plan Chief Complaint/Hosp Course IMPRESSION AND PLAN: 1. 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 Will require continued physical therapy. 2. Hypertension. Continue current medications. 3. Diabetes mellitus. Continue current glycemic management. 4. DVT and GI prophylaxis. Discussed with staff Discussed with staff Problems: NANETTE MEYERS MD, [facility] November 04, 2016 13:32
[2016-11-04 19:45] VITALS: BP 124/60; RESP 18
[2016-11-04] MEDS: HYDROCODONE/APAP (5/325) TAB PO PRN (21:12)
[2016-11-04] MEDS: ATORVASTATIN 10 MG TAB PO SCH (21:12)
[2016-11-04] MEDS: EZETIMIBE 10 MG TAB PO SCH (21:12)
[2016-11-05] MEDS: DEXAMETHASONE 4 MG TAB PO SCH ×3 (06:40→21:08)
[2016-11-05] MEDS: PANTOPRAZOLE (EC) 40 MG TAB PO SCH (06:40)
[2016-11-05 07:55] VITALS: BP 130/62; RESP 18
[2016-11-05] MEDS: GABAPENTIN 100 MG CAP PO SCH ×2 (09:47→21:03)
[2016-11-05] MEDS: SENNA TAB PO SCH ×2 (09:47→21:00)
[2016-11-05] MEDS: LOSARTAN 50 MG TAB PO SCH (09:48)
[2016-11-05] MEDS: CHOLECALCIFEROL 1,000 UNIT TAB PO SCH (09:48)
[2016-11-05] MEDS: AMLODIPINE 10 MG TAB PO SCH (09:49)
[2016-11-05] MEDS: DOCUSATE SODIUM 100 MG CAP PO SCH (09:49)
[2016-11-05] MEDS: SERTRALINE 100 MG TAB PO SCH (09:49)
[2016-11-05] MEDS: traMADol 50 MG TAB PO PRN ×2 (09:53→15:38)
--- NOTE | 2016-11-05 12:24 | CONS ---
Date/Time of Note Date/Time of Note DATE: 11/05/16 TIME: 12:23 Consult Date/Type/Reason Admit Date/Time November 02, 2016 at 13:56 Type of Consultation: Internal medicine Subjective Doing well Objective pulm-cta abd-soft min ambulation Vital Signs Date Time Temp Pulse Resp B/P Pulse Ox O2 Delivery O2 Flow Rate FiO2 11/05/16 07:55 98.4 50 18 130/62 97 11/02/16 14:30 Room Air Intake and Output 11/04/16 11/04/16 11/05/16 15:00 23:00 07:00 Intake Total 780 ml 200 ml Output Total 400 ml Balance 780 ml -200 ml Results/Medications Result Diagram: 11/03/16 0600 11/03/16 0600 Medications Current Medications Amlodipine Besylate (Norvasc) 10 mg DAILY PO Last administered on 11/05/16 09: 49; Admin Dose 10 MG; Start 11/03/16 at 09:00 Atorvastatin Calcium (Lipitor) 10 mg DAILY@21 PO Last administered on 21:12; Admin Dose 10 MG; Start 11/02/16 at 21:00 Carvedilol (Coreg) 3.125 mg BID PO Last administered on 11/05/16 09:50; Admin Dose 3.125 MG; Start 11/02/16 at 21:00 Cholecalciferol (Vitamin D) 1,000 unit DAILY PO Last administered on 11/05/16 09:48; Admin Dose 1,000 UNIT; Start 11/03/16 at 09:00 Docusate Sodium (Colace) 200 mg DAILY PO Last administered on 11/05/16 09:49; Admin Dose 200 MG; Start 11/03/16 at 09:00 EZETIMIBE (Zetia) 10 mg HS PO Last administered on 11/04/16 21:12; Admin Dose 10 MG; Start 11/02/16 at 21:00 Acetaminophen/ Hydrocodone Bitart ([place] (5/325)) 1 tab Q6H PRN PO pain Last administered on 11/04/16 21:12; Admin Dose 1 TAB; Start 11/02/16 at 15:30 Losartan Potassium (Cozaar) 100 mg DAILY PO Last administered on 11/05/16 09: 48; Admin Dose 100 MG; Start 11/03/16 at 09:00 Pantoprazole (Protonix Tab) 40 mg DAILY@06 PO Last administered on 11/05/16 06 :40; Admin Dose 40 MG; Start 11/03/16 at 06:00 Senna (Senokot) 2 tab BID PO Last administered on 11/05/16 09:47; Admin Dose 2 TAB; Start 11/02/16 at 21:00 Sertraline HCl (Zoloft) 100 mg DAILY PO Last administered on 11/05/16 09:49; Admin Dose 100 MG; Start 11/03/16 at 09:00 Tramadol HCl (Ultram) 50 mg Q6H PRN PO PAIN Last administered on 11/05/16 09: 53; Admin Dose 50 MG; Start 11/02/16 at 15:30 Dexamethasone (Decadron) 4 mg Q8 PO Last administered on 11/05/16 06:40; Admin Dose 4 MG; Start 11/02/16 at 22:00 Acetaminophen (Tylenol Tab) 650 mg Q4H PRN PO PAIN AND OR ELEVATED TEMP; Start 11/02/16 at 16:30 Bisacodyl (Dulcolax Supp) 10 mg DAILY PRN [place] CONSTIPATION; Start 11/02/16 at 16: 30 Magnesium Hydroxide (Milk Of Mag) 30 ml BID PRN PO CONSTIPATION; Start 11/02/16 at 16:30 Lactulose (Enulose) 20 gm DAILY PRN PO CONSTIPATION Last administered on 17:36; Admin Dose 20 GM; Start 11/02/16 at 16:30 Gabapentin (Neurontin) 100 mg BID PO Last administered on 11/05/16 09:47; Admin Dose 100 MG; Start 11/03/16 at 21:00 Assessment/Plan Additional Assessment/Plan Rehab- 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 Continue rehab program Acute pain syndrome;Neuropathic pain-continue current meds Hypertension. Gastroesophageal reflux disease. History of gastrointestinal bleed. Diabetes mellitus. KLAUDIA STEVENSON MD November 05, 2016 12:24
--- NOTE | 2016-11-05 15:29 | CONS ---
Date/Time of Note Date/Time of Note DATE: 11/05/16 TIME: 15:28 Consult Date/Type/Reason Admit Date/Time November 02, 2016 at 13:56 Type of Consultation: Internal medicine Subjective Complaining of pain right arm right flank Objective Vital Signs Date Time Temp Pulse Resp B/P Pulse Ox O2 Delivery O2 Flow Rate FiO2 11/05/16 07:55 98.4 50 18 130/62 97 11/02/16 14:30 Room Air Intake and Output 11/04/16 11/04/16 11/05/16 14:59 22:59 06:59 Intake Total 780 ml 200 ml Output Total 400 ml Balance 780 ml -200 ml Exam PHYSICAL EXAMINATION: GENERAL: Well-nourished, well-developed lady, comfortable at rest, no acute distress. VITAL SIGNS: Within normal limits. Moist mucous membranes. Pupils equal and reactive to light. NECK: Supple, no JVD or lymphadenopathy. CARDIAC: S1, S2, no added sounds or murmurs. CHEST: Diminished air entry bilaterally. ABDOMEN: Soft, nontender. No guarding or rebound. EXTREMITIES: No cyanosis, clubbing. NEUROLOGIC: She has right upper extremity weakness. Results/Medications Result Diagram: 11/03/16 0600 11/03/16 0600 Medications Current Medications Amlodipine Besylate (Norvasc) 10 mg DAILY PO Last administered on 11/05/16 09: 49; Admin Dose 10 MG; Start 11/03/16 at 09:00 Atorvastatin Calcium (Lipitor) 10 mg DAILY@21 PO Last administered on 21:12; Admin Dose 10 MG; Start 11/02/16 at 21:00 Carvedilol (Coreg) 3.125 mg BID PO Last administered on 11/05/16 09:50; Admin Dose 3.125 MG; Start 11/02/16 at 21:00 Cholecalciferol (Vitamin D) 1,000 unit DAILY PO Last administered on 11/05/16 09:48; Admin Dose 1,000 UNIT; Start 11/03/16 at 09:00 Docusate Sodium (Colace) 200 mg DAILY PO Last administered on 11/05/16 09:49; Admin Dose 200 MG; Start 11/03/16 at 09:00 EZETIMIBE (Zetia) 10 mg HS PO Last administered on 11/04/16 21:12; Admin Dose 10 MG; Start 11/02/16 at 21:00 Acetaminophen/ Hydrocodone Bitart ([place] (5/325)) 1 tab Q6H PRN PO pain Last administered on 11/04/16 21:12; Admin Dose 1 TAB; Start 11/02/16 at 15:30 Losartan Potassium (Cozaar) 100 mg DAILY PO Last administered on 11/05/16 09: 48; Admin Dose 100 MG; Start 11/03/16 at 09:00 Pantoprazole (Protonix Tab) 40 mg DAILY@06 PO Last administered on 11/05/16 06 :40; Admin Dose 40 MG; Start 11/03/16 at 06:00 Senna (Senokot) 2 tab BID PO Last administered on 11/05/16 09:47; Admin Dose 2 TAB; Start 11/02/16 at 21:00 Sertraline HCl (Zoloft) 100 mg DAILY PO Last administered on 11/05/16 09:49; Admin Dose 100 MG; Start 11/03/16 at 09:00 Tramadol HCl (Ultram) 50 mg Q6H PRN PO PAIN Last administered on 11/05/16 09: 53; Admin Dose 50 MG; Start 11/02/16 at 15:30 Dexamethasone (Decadron) 4 mg Q8 PO Last administered on 11/05/16 06:40; Admin Dose 4 MG; Start 11/02/16 at 22:00 Acetaminophen (Tylenol Tab) 650 mg Q4H PRN PO PAIN AND OR ELEVATED TEMP; Start 11/02/16 at 16:30 Bisacodyl (Dulcolax Supp) 10 mg DAILY PRN [place] CONSTIPATION; Start 11/02/16 at 16: 30 Magnesium Hydroxide (Milk Of Mag) 30 ml BID PRN PO CONSTIPATION; Start 11/02/16 at 16:30 Lactulose (Enulose) 20 gm DAILY PRN PO CONSTIPATION Last administered on 17:36; Admin Dose 20 GM; Start 11/02/16 at 16:30 Gabapentin (Neurontin) 100 mg BID PO Last administered on 11/05/16 09:47; Admin Dose 100 MG; Start 11/03/16 at 21:00 Assessment/Plan Chief Complaint/Hosp Course IMPRESSION AND PLAN: 1. 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 Will require continued physical therapy. 2. Hypertension. Continue current medications. 3. Diabetes mellitus. Continue current glycemic management. 4. DVT and GI prophylaxis. Problems: NANETTE MEYERS MD, [facility] November 05, 2016 15:29
[2016-11-05 20:17] VITALS: BP 119/59; RESP 18
[2016-11-05] MEDS: ZOLPIDEM 5 MG TAB PO PRN (21:03)
[2016-11-05] MEDS: HYDROCODONE/APAP (5/325) TAB PO PRN (21:03)
[2016-11-05] MEDS: EZETIMIBE 10 MG TAB PO SCH (21:03)
[2016-11-05] MEDS: ATORVASTATIN 10 MG TAB PO SCH (21:08)
[2016-11-06] MEDS: DEXAMETHASONE 4 MG TAB PO SCH ×3 (06:26→20:14)
[2016-11-06] MEDS: PANTOPRAZOLE (EC) 40 MG TAB PO SCH (06:26)
[2016-11-06] MEDS: DOCUSATE SODIUM 100 MG CAP PO SCH (08:55)
[2016-11-06] MEDS: GABAPENTIN 100 MG CAP PO SCH ×2 (08:55→20:14)
[2016-11-06] MEDS: AMLODIPINE 10 MG TAB PO SCH (08:55)
[2016-11-06] MEDS: LOSARTAN 50 MG TAB PO SCH (08:55)
[2016-11-06] MEDS: CHOLECALCIFEROL 1,000 UNIT TAB PO SCH (08:56)
[2016-11-06] MEDS: SERTRALINE 100 MG TAB PO SCH (08:56)
[2016-11-06] MEDS: SENNA TAB PO SCH ×2 (08:57→20:15)
[2016-11-06 09:01] VITALS: BP 117/54; PULSE 62; RESP 18
--- NOTE | 2016-11-06 10:25 | PN ---
Date/Time of Note Date/Time of Note DATE: 11/06/16 TIME: 10:19 Assessment/Plan VTE Prophylaxis VTE Prophylaxis Intervention: ambulation, SCD's Lines/Catheters IV Catheter Type (from Nrsg): Saline Lock Urinary Cath still in place: No Assessment/Plan Assessment/Plan 1. 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 With impaired mobility/gait/ ADLs and residual weakness. Treated nonoperatively per NSGY. Continue PT/OT. Min assist to contact guard assist for bed mobility and transfers. 2. Acute pain syndrome with baseline chronic pain. Controlled, continue current regimen. 3. Hypertension. BP controlled. Continue medical management. 4. Gastroesophageal reflux disease. Continue PPI. 5. Dyslipidemia. Continue statin. 6. History of depression. Mood appears stable at this time. Continue current management. Subjective 24 Hr Interval Summary Free Text/Dictation Rehab progress note Subjective: No acute overnight events per nursing staff. Reports slept better last night with ambien. Pain overall improving. ROS: Denies chest pain, no abdominal pain, no shortness of breath, no chills, no vomiting, no headache, no new weakness or new paresthesias. Exam/Review of Systems Vital Signs Vitals Vital Signs Date Time Temp Pulse Resp B/P Pulse Ox O2 Delivery O2 Flow Rate FiO2 11/06/16 09:01 97.9 62 18 117/54 96 Room Air Intake and Output 11/05/16 11/05/16 11/06/16 15:00 23:00 07:00 Intake Total 1200 ml 600 ml 250 ml Balance 1200 ml 600 ml 250 ml Exam General: Awake, alert, no acute distress CV: Regular rate, s1s2 Lungs clear to auscultation, no wheezing Abdomen soft, nontender Extremities without cyanosis, no distal edema in the lower extremities. Neuro: RUE weakness. Antigravity strength BLE. No new sensory changes. Results Result Diagram: 11/03/16 0600 11/03/16 06 Medications Medications Current Medications Amlodipine Besylate (Norvasc) 10 mg DAILY PO Last administered on 11/05/16 09: 49; Admin Dose 10 MG; Start 11/03/16 at 09:00 Atorvastatin Calcium (Lipitor) 10 mg DAILY@21 PO Last administered on 21:08; Admin Dose 10 MG; Start 11/02/16 at 21:00 Carvedilol (Coreg) 3.125 mg BID PO Last administered on 11/06/16 08:55; Admin Dose 3.125 MG; Start 11/02/16 at 21:00 Cholecalciferol (Vitamin D) 1,000 unit DAILY PO Last administered on 11/06/16 08:56; Admin Dose 1,000 UNIT; Start 11/03/16 at 09:00 Docusate Sodium (Colace) 200 mg DAILY PO Last administered on 11/06/16 08:55; Admin Dose 200 MG; Start 11/03/16 at 09:00 EZETIMIBE (Zetia) 10 mg HS PO Last administered on 11/05/16 21:03; Admin Dose 10 MG; Start 11/02/16 at 21:00 Acetaminophen/ Hydrocodone Bitart ([place] (5/325)) 1 tab Q6H PRN PO pain Last administered on 11/05/16 21:03; Admin Dose 1 TAB; Start 11/02/16 at 15:30 Losartan Potassium (Cozaar) 100 mg DAILY PO Last administered on 11/05/16 09: 48; Admin Dose 100 MG; Start 11/03/16 at 09:00 Pantoprazole (Protonix Tab) 40 mg DAILY@06 PO Last administered on 11/06/16 06 :26; Admin Dose 40 MG; Start 11/03/16 at 06:00 Senna (Senokot) 2 tab BID PO Last administered on 11/05/16 09:47; Admin Dose 2 TAB; Start 11/02/16 at 21:00 Sertraline HCl (Zoloft) 100 mg DAILY PO Last administered on 11/06/16 08:56; Admin Dose 100 MG; Start 11/03/16 at 09:00 Tramadol HCl (Ultram) 50 mg Q6H PRN PO PAIN Last administered on 11/05/16 15: 38; Admin Dose 50 MG; Start 11/02/16 at 15:30 Dexamethasone (Decadron) 4 mg Q8 PO Last administered on 11/06/16 06:26; Admin Dose 4 MG; Start 11/02/16 at 22:00 Acetaminophen (Tylenol Tab) 650 mg Q4H PRN PO PAIN AND OR ELEVATED TEMP; Start 11/02/16 at 16:30 Bisacodyl (Dulcolax Supp) 10 mg DAILY PRN [place] CONSTIPATION; Start 11/02/16 at 16: 30 Magnesium Hydroxide (Milk Of Mag) 30 ml BID PRN PO CONSTIPATION; Start 11/02/16 at 16:30 Lactulose (Enulose) 20 gm DAILY PRN PO CONSTIPATION Last administered on 17:36; Admin Dose 20 GM; Start 11/02/16 at 16:30 Gabapentin (Neurontin) 100 mg BID PO Last administered on 11/06/16 08:55; Admin Dose 100 MG; Start 11/03/16 at 21:00 Zolpidem Tartrate (Ambien) 5 mg HS PRN PO INSOMNIA Last administered on 21:03; Admin Dose 5 MG; Start 11/05/16 at 16:00 MARGARITO MARAVILLA November 06, 2016 10:25
[2016-11-06 13:00] VITALS: BP 109/58; PULSE 56; RESP 18
[2016-11-06 19:53] VITALS: BP 134/63; RESP 18
[2016-11-06] MEDS: EZETIMIBE 10 MG TAB PO SCH (20:14)
[2016-11-06] MEDS: ATORVASTATIN 10 MG TAB PO SCH (20:14)
[2016-11-06] MEDS: ZOLPIDEM 5 MG TAB PO PRN (22:13)
[2016-11-07] MEDS: PANTOPRAZOLE (EC) 40 MG TAB PO SCH (06:27)
[2016-11-07] MEDS: DEXAMETHASONE 4 MG TAB PO SCH ×3 (06:27→21:07)
[2016-11-07 07:30] VITALS: BP 140/65; RESP 18
[2016-11-07] MEDS: CHOLECALCIFEROL 1,000 UNIT TAB PO SCH (08:55)
[2016-11-07] MEDS: DOCUSATE SODIUM 100 MG CAP PO SCH (08:55)
[2016-11-07] MEDS: GABAPENTIN 100 MG CAP PO SCH ×2 (08:55→21:08)
[2016-11-07] MEDS: LACTULOSE 30ML CUP PO PRN (08:55)
[2016-11-07] MEDS: LOSARTAN 50 MG TAB PO SCH (08:56)
[2016-11-07] MEDS: SENNA TAB PO SCH ×2 (08:56→21:00)
[2016-11-07] MEDS: AMLODIPINE 10 MG TAB PO SCH (08:57)
[2016-11-07] MEDS: SERTRALINE 100 MG TAB PO SCH (08:57)
[2016-11-07 09:00] VITALS: BP 135/62; PULSE 62; RESP 16
--- NOTE | 2016-11-07 09:11 | PN ---
Date/Time of Note Date/Time of Note DATE: 11/07/16 TIME: 09:07 Assessment/Plan VTE Prophylaxis VTE Prophylaxis Intervention: ambulation, SCD's Lines/Catheters IV Catheter Type (from Nrsg): Saline Lock Urinary Cath still in place: No Assessment/Plan Assessment/Plan 1. 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 With impaired mobility/gait/ ADLs and residual weakness. Continue conservative treatment per NSGY. Continue PT/OT. Min assist for gait 75ft with FWW, min assist negotiating 12 stairs with bilateral rails. 2. Acute pain syndrome with baseline chronic pain. Continue pain regimen including gabapentin, adjust further as needed. 3. Hypertension. BP controlled. Continue medical management. 4. GERD.. Continue PPI. 5. Dyslipidemia. Continue statin. 6. History of depression. Mood stable. Continue medical management. Subjective 24 Hr Interval Summary Free Text/Dictation Rehab progress note Subjective: No acute overnight events per nursing. Pain stable overall. Denies new weakness or new paresthesias. ROS: No chest pain, no shortness of breath, no abdominal pain, no nausea, last bowel movement 2 days ago. Exam/Review of Systems Vital Signs Vitals Vital Signs Date Time Temp Pulse Resp B/P Pulse Ox O2 Delivery O2 Flow Rate FiO2 11/07/16 09:00 62 16 135/62 96 Room Air 11/06/16 19:53 98.2 Intake and Output 11/06/16 11/06/16 11/07/16 15:00 23:00 07:00 Intake Total 720 ml 850 ml 200 ml Output Total 250 ml 650 ml Balance 470 ml 200 ml 200 ml Exam General: Awake, alert, no acute distress CV: Regular rate, s1s2 Lungs: Respirations nonlabored, no wheezing Abdomen soft, nontender Extremities without cyanosis, no new swelling Neuro: No new focal changes. Follows simple commands. Results Result Diagram: 11/03/16 0600 11/03/16 0600 Medications Medications Current Medications Amlodipine Besylate (Norvasc) 10 mg DAILY PO Last administered on 11/07/16 08: 57; Admin Dose 10 MG; Start 11/03/16 at 09:00 Atorvastatin Calcium (Lipitor) 10 mg DAILY@21 PO Last administered on 20:14; Admin Dose 10 MG; Start 11/02/16 at 21:00 Carvedilol (Coreg) 3.125 mg BID PO Last administered on 11/07/16 08:56; Admin Dose 3.125 MG; Start 11/02/16 at 21:00 Cholecalciferol (Vitamin D) 1,000 unit DAILY PO Last administered on 11/07/16 08:55; Admin Dose 1,000 UNIT; Start 11/03/16 at 09:00 Docusate Sodium (Colace) 200 mg DAILY PO Last administered on 11/07/16 08:55; Admin Dose 200 MG; Start 11/03/16 at 09:00 EZETIMIBE (Zetia) 10 mg HS PO Last administered on 11/06/16 20:14; Admin Dose 10 MG; Start 11/02/16 at 21:00 Acetaminophen/ Hydrocodone Bitart ([place] (5/325)) 1 tab Q6H PRN PO pain Last administered on 11/05/16 21:03; Admin Dose 1 TAB; Start 11/02/16 at 15:30 Losartan Potassium (Cozaar) 100 mg DAILY PO Last administered on 11/07/16 08: 56; Admin Dose 100 MG; Start 11/03/16 at 09:00 Pantoprazole (Protonix Tab) 40 mg DAILY@06 PO Last administered on 11/07/16 06 :27; Admin Dose 40 MG; Start 11/03/16 at 06:00 Senna (Senokot) 2 tab BID PO Last administered on 11/07/16 08:56; Admin Dose 2 TAB; Start 11/02/16 at 21:00 Sertraline HCl (Zoloft) 100 mg DAILY PO Last administered on 11/07/16 08:57; Admin Dose 100 MG; Start 11/03/16 at 09:00 Tramadol HCl (Ultram) 50 mg Q6H PRN PO PAIN Last administered on 11/05/16 15: 38; Admin Dose 50 MG; Start 11/02/16 at 15:30 Dexamethasone (Decadron) 4 mg Q8 PO Last administered on 11/07/16 06:27; Admin Dose 4 MG; Start 11/02/16 at 22:00 Acetaminophen (Tylenol Tab) 650 mg Q4H PRN PO PAIN AND OR ELEVATED TEMP; Start 11/02/16 at 16:30 Bisacodyl (Dulcolax Supp) 10 mg DAILY PRN [place] CONSTIPATION; Start 11/02/16 at 16: 30 Magnesium Hydroxide (Milk Of Mag) 30 ml BID PRN PO CONSTIPATION; Start 11/02/16 at 16:30 Lactulose (Enulose) 20 gm DAILY PRN PO CONSTIPATION Last administered on 08:55; Admin Dose 20 GM; Start 11/02/16 at 16:30 Gabapentin (Neurontin) 100 mg BID PO Last administered on 11/07/16 08:55; Admin Dose 100 MG; Start 11/03/16 at 21:00 Zolpidem Tartrate (Ambien) 5 mg HS PRN PO INSOMNIA Last administered on 22:13; Admin Dose 5 MG; Start 11/05/16 at 16:00 MARGARITO MARAVILLA November 07, 2016 09:11
--- NOTE | 2016-11-07 14:23 | CONS ---
Date/Time of Note Date/Time of Note DATE: 11/07/16 TIME: : Consult Date/Type/Reason Admit Date/Time November 02, 2016 at 13:56 Type of Consultation: Internal medicine Subjective No events. Still has pain on left side Objective Vital Signs Date Time Temp Pulse Resp B/P Pulse Ox O2 Delivery O2 Flow Rate FiO2 11/07/16 09:00 62 16 135/62 96 Room Air 11/07/16 07:30 98.5 Intake and Output 11/06/16 11/06/16 11/07/16 15:00 23:00 07:00 Intake Total 720 ml 850 ml 200 ml Output Total 250 ml 650 ml Balance 470 ml 200 ml 200 ml Exam HEENT: Neck supple; no JVD; no LAD CVS: RRR, S1 and S2 CHEST: Clear ABD: Soft, NT, + BS EXT: No c/c/e Results/Medications Result Diagram: 11/03/16 0600 11/03/16 0600 Medications Current Medications Amlodipine Besylate (Norvasc) 10 mg DAILY PO Last administered on 11/07/16 08: 57; Admin Dose 10 MG; Start 11/03/16 at 09:00 Atorvastatin Calcium (Lipitor) 10 mg DAILY@21 PO Last administered on 20:14; Admin Dose 10 MG; Start 11/02/16 at 21:00 Carvedilol (Coreg) 3.125 mg BID PO Last administered on 11/07/16 08:56; Admin Dose 3.125 MG; Start 11/02/16 at 21:00 Cholecalciferol (Vitamin D) 1,000 unit DAILY PO Last administered on 11/07/16 08:55; Admin Dose 1,000 UNIT; Start 11/03/16 at 09:00 Docusate Sodium (Colace) 200 mg DAILY PO Last administered on 11/07/16 08:55; Admin Dose 200 MG; Start 11/03/16 at 09:00 EZETIMIBE (Zetia) 10 mg HS PO Last administered on 11/06/16 20:14; Admin Dose 10 MG; Start 11/02/16 at 21:00 Acetaminophen/ Hydrocodone Bitart ([place] (5/325)) 1 tab Q6H PRN PO pain Last administered on 11/05/16 21:03; Admin Dose 1 TAB; Start 11/02/16 at 15:30 Losartan Potassium (Cozaar) 100 mg DAILY PO Last administered on 11/07/16 08: 56; Admin Dose 100 MG; Start 11/03/16 at 09:00 Pantoprazole (Protonix Tab) 40 mg DAILY@06 PO Last administered on 11/07/16 06 :27; Admin Dose 40 MG; Start 11/03/16 at 06:00 Senna (Senokot) 2 tab BID PO Last administered on 11/07/16 08:56; Admin Dose 2 TAB; Start 11/02/16 at 21:00 Sertraline HCl (Zoloft) 100 mg DAILY PO Last administered on 11/07/16 08:57; Admin Dose 100 MG; Start 11/03/16 at 09:00 Tramadol HCl (Ultram) 50 mg Q6H PRN PO PAIN Last administered on 11/05/16 15: 38; Admin Dose 50 MG; Start 11/02/16 at 15:30 Dexamethasone (Decadron) 4 mg Q8 PO Last administered on 11/07/16 13:03; Admin Dose 4 MG; Start 11/02/16 at 22:00 Acetaminophen (Tylenol Tab) 650 mg Q4H PRN PO PAIN AND OR ELEVATED TEMP; Start 11/02/16 at 16:30 Bisacodyl (Dulcolax Supp) 10 mg DAILY PRN [place] CONSTIPATION; Start 11/02/16 at 16: 30 Magnesium Hydroxide (Milk Of Mag) 30 ml BID PRN PO CONSTIPATION; Start 11/02/16 at 16:30 Lactulose (Enulose) 20 gm DAILY PRN PO CONSTIPATION Last administered on 08:55; Admin Dose 20 GM; Start 11/02/16 at 16:30 Gabapentin (Neurontin) 100 mg BID PO Last administered on 11/07/16 08:55; Admin Dose 100 MG; Start 11/03/16 at 21:00 Zolpidem Tartrate (Ambien) 5 mg HS PRN PO INSOMNIA Last administered on 22:13; Admin Dose 5 MG; Start 11/05/16 at 16:00 Assessment/Plan Additional Assessment/Plan IMP: 1. 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 2. Acute pain syndrome 3. Hypertension 4. GERD 5. Dyslipidemia RECS: 1. Continue PT/OT 2. BP control 3. Neuroloptic therapy VON GONZALEZ MD November 07, 2016 14:23
[2016-11-07 17:30] VITALS: BP 133/65; PULSE 54; RESP 16
[2016-11-07 21:05] VITALS: BP 118/59; PULSE 54; RESP 16
[2016-11-07] MEDS: EZETIMIBE 10 MG TAB PO SCH (21:07)
[2016-11-07] MEDS: ATORVASTATIN 10 MG TAB PO SCH (21:07)
[2016-11-07] MEDS: ZOLPIDEM 5 MG TAB PO PRN (21:08)
[2016-11-08] MEDS: PANTOPRAZOLE (EC) 40 MG TAB PO SCH (05:26)
[2016-11-08] MEDS: DEXAMETHASONE 4 MG TAB PO SCH ×2 (05:26→21:19)
[2016-11-08] MEDS: LOSARTAN 50 MG TAB PO SCH (09:00)
[2016-11-08] MEDS: AMLODIPINE 10 MG TAB PO SCH (09:00)
[2016-11-08] MEDS: DOCUSATE SODIUM 100 MG CAP PO SCH (09:53)
[2016-11-08] MEDS: GABAPENTIN 100 MG CAP PO SCH ×2 (09:53→21:10)
[2016-11-08] MEDS: CHOLECALCIFEROL 1,000 UNIT TAB PO SCH (09:53)
[2016-11-08] MEDS: SENNA TAB PO SCH ×2 (09:54→21:00)
[2016-11-08] MEDS: traMADol 50 MG TAB PO PRN ×2 (10:02→21:15)
[2016-11-08] MEDS: SERTRALINE 100 MG TAB PO SCH (10:02)
--- NOTE | 2016-11-08 11:49 | CONS ---
Date/Time of Note Date/Time of Note DATE: 11/08/16 TIME: 11:49 Consult Date/Type/Reason Admit Date/Time November 02, 2016 at 13:56 Type of Consultation: Internal medicine Subjective No new complaints Objective Vital Signs Date Time Temp Pulse Resp B/P Pulse Ox O2 Delivery O2 Flow Rate FiO2 11/07/16 21:05 98.8 54 16 118/59 98 Room Air Intake and Output 11/07/16 11/07/16 11/08/16 14:59 22:59 06:59 Intake Total 1690 ml 300 ml Output Total 950 ml Balance 740 ml 300 ml INTERDISCIPLINARY TEAM CONFERENCE BOWEL- Cont BLADDER-Cont SKIN- intact OT- DRESSING-min/mod BATHING-mod TOILETING-min/mod PT- BED MOBILITY-min TRANSFERS-min AMBULATION-min 75 feet SPEECH- COGNITION-MA A/P- Interdisciplinary team conference held today. Please see interdisciplinary sheet. Working toward d.cJean on 11/13 with post discharge follow up of physical therapy, occupational therapy. Results/Medications Medications Current Medications Amlodipine Besylate (Norvasc) 10 mg DAILY PO Last administered on 11/07/16 08: 57; Admin Dose 10 MG; Start 11/03/16 at 09:00 Atorvastatin Calcium (Lipitor) 10 mg DAILY@21 PO Last administered on 21:07; Admin Dose 10 MG; Start 11/02/16 at 21:00 Carvedilol (Coreg) 3.125 mg BID PO Last administered on 11/07/16 08:56; Admin Dose 3.125 MG; Start 11/02/16 at 21:00 Cholecalciferol (Vitamin D) 1,000 unit DAILY PO Last administered on 11/08/16 09:53; Admin Dose 1,000 UNIT; Start 11/03/16 at 09:00 Docusate Sodium (Colace) 200 mg DAILY PO Last administered on 11/08/16 09:53; Admin Dose 200 MG; Start 11/03/16 at 09:00 EZETIMIBE (Zetia) 10 mg HS PO Last administered on 11/07/16 21:07; Admin Dose 10 MG; Start 11/02/16 at 21:00 Acetaminophen/ Hydrocodone Bitart ([place] (5/325)) 1 tab Q6H PRN PO pain Last administered on 11/05/16 21:03; Admin Dose 1 TAB; Start 11/02/16 at 15:30 Losartan Potassium (Cozaar) 100 mg DAILY PO Last administered on 11/07/16 08: 56; Admin Dose 100 MG; Start 11/03/16 at 09:00 Pantoprazole (Protonix Tab) 40 mg DAILY@06 PO Last administered on 11/08/16 05 :26; Admin Dose 40 MG; Start 11/03/16 at 06:00 Senna (Senokot) 2 tab BID PO Last administered on 11/08/16 09:54; Admin Dose 2 TAB; Start 11/02/16 at 21:00 Sertraline HCl (Zoloft) 100 mg DAILY PO Last administered on 11/08/16 10:02; Admin Dose 100 MG; Start 11/03/16 at 09:00 Tramadol HCl (Ultram) 50 mg Q6H PRN PO PAIN Last administered on 11/08/16 10: 02; Admin Dose 50 MG; Start 11/02/16 at 15:30 Dexamethasone (Decadron) 4 mg Q8 PO Last administered on 11/08/16 05:26; Admin Dose 4 MG; Start 11/02/16 at 22:00 Acetaminophen (Tylenol Tab) 650 mg Q4H PRN PO PAIN AND OR ELEVATED TEMP; Start 11/02/16 at 16:30 Bisacodyl (Dulcolax Supp) 10 mg DAILY PRN [place] CONSTIPATION; Start 11/02/16 at 16: 30 Magnesium Hydroxide (Milk Of Mag) 30 ml BID PRN PO CONSTIPATION; Start 11/02/16 at 16:30 Lactulose (Enulose) 20 gm DAILY PRN PO CONSTIPATION Last administered on 08:55; Admin Dose 20 GM; Start 11/02/16 at 16:30 Gabapentin (Neurontin) 100 mg BID PO Last administered on 11/08/16 09:53; Admin Dose 100 MG; Start 11/03/16 at 21:00 Zolpidem Tartrate (Ambien) 5 mg HS PRN PO INSOMNIA Last administered on 21:08; Admin Dose 5 MG; Start 11/05/16 at 16:00 KLAUDIA STEVENSON MD November 08, 2016 11:49
--- NOTE | 2016-11-08 13:48 | CONS ---
Date/Time of Note Date/Time of Note DATE: 11/08/16 TIME: 13:47 Consult Date/Type/Reason Admit Date/Time November 02, 2016 at 13:56 Type of Consultation: Internal medicine Subjective Patient remains stable no new events. Palpitations yesterday but normal EKG and vital signs Objective Vital Signs Date Time Temp Pulse Resp B/P Pulse Ox O2 Delivery O2 Flow Rate FiO2 11/07/16 21:05 98.8 54 16 118/59 98 Room Air Intake and Output 11/07/16 11/07/16 11/08/16 15:00 23:00 07:00 Intake Total 1690 ml 300 ml Output Total 950 ml Balance 740 ml 300 ml Exam PHYSICAL EXAMINATION: GENERAL: Well-nourished, well-developed lady, comfortable at rest, no acute distress. VITAL SIGNS: Within normal limits. Moist mucous membranes. Pupils equal and reactive to light. NECK: Supple, no JVD or lymphadenopathy. CARDIAC: S1, S2, no added sounds or murmurs. CHEST: Diminished air entry bilaterally. ABDOMEN: Soft, nontender. No guarding or rebound. EXTREMITIES: No cyanosis, clubbing. NEUROLOGIC: She has right upper extremity weakness. Results/Medications Medications Current Medications Amlodipine Besylate (Norvasc) 10 mg DAILY PO Last administered on 11/07/16 08: 57; Admin Dose 10 MG; Start 11/03/16 at 09:00 Atorvastatin Calcium (Lipitor) 10 mg DAILY@21 PO Last administered on 21:07; Admin Dose 10 MG; Start 11/02/16 at 21:00 Carvedilol (Coreg) 3.125 mg BID PO Last administered on 11/07/16 08:56; Admin Dose 3.125 MG; Start 11/02/16 at 21:00 Cholecalciferol (Vitamin D) 1,000 unit DAILY PO Last administered on 11/08/16 09:53; Admin Dose 1,000 UNIT; Start 11/03/16 at 09:00 Docusate Sodium (Colace) 200 mg DAILY PO Last administered on 11/08/16 09:53; Admin Dose 200 MG; Start 11/03/16 at 09:00 EZETIMIBE (Zetia) 10 mg HS PO Last administered on 11/07/16 21:07; Admin Dose 10 MG; Start 11/02/16 at 21:00 Acetaminophen/ Hydrocodone Bitart ([place] (5/325)) 1 tab Q6H PRN PO pain Last administered on 11/05/16 21:03; Admin Dose 1 TAB; Start 11/02/16 at 15:30 Losartan Potassium (Cozaar) 100 mg DAILY PO Last administered on 11/07/16 08: 56; Admin Dose 100 MG; Start 11/03/16 at 09:00 Pantoprazole (Protonix Tab) 40 mg DAILY@06 PO Last administered on 11/08/16 05 :26; Admin Dose 40 MG; Start 11/03/16 at 06:00 Senna (Senokot) 2 tab BID PO Last administered on 11/08/16 09:54; Admin Dose 2 TAB; Start 11/02/16 at 21:00 Sertraline HCl (Zoloft) 100 mg DAILY PO Last administered on 11/08/16 10:02; Admin Dose 100 MG; Start 11/03/16 at 09:00 Tramadol HCl (Ultram) 50 mg Q6H PRN PO PAIN Last administered on 11/08/16 10: 02; Admin Dose 50 MG; Start 11/02/16 at 15:30 Dexamethasone (Decadron) 4 mg Q8 PO Last administered on 11/08/16 05:26; Admin Dose 4 MG; Start 11/02/16 at 22:00 Acetaminophen (Tylenol Tab) 650 mg Q4H PRN PO PAIN AND OR ELEVATED TEMP; Start 11/02/16 at 16:30 Bisacodyl (Dulcolax Supp) 10 mg DAILY PRN [place] CONSTIPATION; Start 11/02/16 at 16: 30 Magnesium Hydroxide (Milk Of Mag) 30 ml BID PRN PO CONSTIPATION; Start 11/02/16 at 16:30 Lactulose (Enulose) 20 gm DAILY PRN PO CONSTIPATION Last administered on 08:55; Admin Dose 20 GM; Start 11/02/16 at 16:30 Gabapentin (Neurontin) 100 mg BID PO Last administered on 11/08/16 09:53; Admin Dose 100 MG; Start 11/03/16 at 21:00 Zolpidem Tartrate (Ambien) 5 mg HS PRN PO INSOMNIA Last administered on 21:08; Admin Dose 5 MG; Start 11/05/16 at 16:00 Assessment/Plan Chief Complaint/Hosp Course IMPRESSION AND PLAN: 1. 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 Will require continued physical therapy. 2. Hypertension. Continue current medications. 3. Diabetes mellitus. Continue current glycemic management. 4. DVT and GI prophylaxis. 5. Decreased steroids. Dexamethasone twice daily for the next couple days and then once a day and stop. Problems: NANETTE MEYERS MD, [facility] November 08, 2016 13:48
--- NOTE | 2016-11-08 14:24 | RADRPT ---
Vent Rate: 50 bpm RR Interval: 0 msec NM Interval: 160 msec QRS Duration: 82 msec QT Interval: 434 msec QTC Interval: 395 msec P-R-T [place]: 22 - 21 - 64 degrees Sinus bradycardia Nonspecific T wave abnormality Abnormal ECG Electronically Signed By: Daren June [id number]
[2016-11-08 19:40] VITALS: BP 141/64; RESP 18
[2016-11-08] MEDS: ATORVASTATIN 10 MG TAB PO SCH (21:09)
[2016-11-08] MEDS: EZETIMIBE 10 MG TAB PO SCH (21:09)
[2016-11-08] MEDS: ZOLPIDEM 5 MG TAB PO PRN (21:56)
[2016-11-08 22:30] VITALS: BP 131/59; PULSE 57
[2016-11-09] MEDS: PANTOPRAZOLE (EC) 40 MG TAB PO SCH (06:04)
[2016-11-09 07:37] VITALS: BP 112/54; RESP 18
[2016-11-09] MEDS: LOSARTAN 50 MG TAB PO SCH (09:00)
[2016-11-09] MEDS: AMLODIPINE 10 MG TAB PO SCH (09:00)
[2016-11-09] MEDS: SENNA TAB PO SCH ×2 (09:13→20:39)
[2016-11-09] MEDS: GABAPENTIN 100 MG CAP PO SCH ×2 (09:14→14:36)
[2016-11-09] MEDS: SERTRALINE 100 MG TAB PO SCH (09:14)
[2016-11-09] MEDS: CHOLECALCIFEROL 1,000 UNIT TAB PO SCH (09:14)
[2016-11-09] MEDS: DOCUSATE SODIUM 100 MG CAP PO SCH (09:14)
[2016-11-09] MEDS: DEXAMETHASONE 4 MG TAB PO SCH ×2 (09:17→20:40)
--- NOTE | 2016-11-09 11:26 | CONS ---
Date/Time of Note Date/Time of Note DATE: 11/09/16 TIME: 11:26 Consult Date/Type/Reason Admit Date/Time November 02, 2016 at 13:56 Type of Consultation: Internal medicine Subjective Pain improved Objective [id number] sba ambulation Vital Signs Date Time Temp Pulse Resp B/P Pulse Ox O2 Delivery O2 Flow Rate FiO2 11/09/16 07:37 98.5 51 18 112/54 97 11/07/16 21:05 Room Air Intake and Output 11/08/16 11/08/16 11/09/16 15:00 23:00 07:00 Intake Total 900 ml 600 ml Output Total 0 ml Balance 900 ml 600 ml Results/Medications Medications Current Medications Amlodipine Besylate (Norvasc) 10 mg DAILY PO Last administered on 11/07/16 08: 57; Admin Dose 10 MG; Start 11/03/16 at 09:00 Atorvastatin Calcium (Lipitor) 10 mg DAILY@21 PO Last administered on 21:09; Admin Dose 10 MG; Start 11/02/16 at 21:00 Carvedilol (Coreg) 3.125 mg BID PO Last administered on 11/08/16 22:31; Admin Dose 3.125 MG; Start 11/02/16 at 21:00 Cholecalciferol (Vitamin D) 1,000 unit DAILY PO Last administered on 11/09/16 09:14; Admin Dose 1,000 UNIT; Start 11/03/16 at 09:00 Docusate Sodium (Colace) 200 mg DAILY PO Last administered on 11/09/16 09:14; Admin Dose 200 MG; Start 11/03/16 at 09:00 EZETIMIBE (Zetia) 10 mg HS PO Last administered on 11/08/16 21:09; Admin Dose 10 MG; Start 11/02/16 at 21:00 Acetaminophen/ Hydrocodone Bitart ([place] (5/325)) 1 tab Q6H PRN PO pain Last administered on 11/05/16 21:03; Admin Dose 1 TAB; Start 11/02/16 at 15:30 Losartan Potassium (Cozaar) 100 mg DAILY PO Last administered on 11/07/16 08: 56; Admin Dose 100 MG; Start 11/03/16 at 09:00 Pantoprazole (Protonix Tab) 40 mg DAILY@06 PO Last administered on 11/09/16 06 :04; Admin Dose 40 MG; Start 11/03/16 at 06:00 Senna (Senokot) 2 tab BID PO Last administered on 11/09/16 09:13; Admin Dose 2 TAB; Start 11/02/16 at 21:00 Sertraline HCl (Zoloft) 100 mg DAILY PO Last administered on 11/09/16 09:14; Admin Dose 100 MG; Start 11/03/16 at 09:00 Tramadol HCl (Ultram) 50 mg Q6H PRN PO PAIN Last administered on 11/08/16 21: 15; Admin Dose 50 MG; Start 11/02/16 at 15:30 Acetaminophen (Tylenol Tab) 650 mg Q4H PRN PO PAIN AND OR ELEVATED TEMP; Start 11/02/16 at 16:30 Bisacodyl (Dulcolax Supp) 10 mg DAILY PRN [place] CONSTIPATION; Start 11/02/16 at 16: 30 Magnesium Hydroxide (Milk Of Mag) 30 ml BID PRN PO CONSTIPATION; Start 11/02/16 at 16:30 Lactulose (Enulose) 20 gm DAILY PRN PO CONSTIPATION Last administered on 08:55; Admin Dose 20 GM; Start 11/02/16 at 16:30 Zolpidem Tartrate (Ambien) 5 mg HS PRN PO INSOMNIA Last administered on 21:56; Admin Dose 5 MG; Start 11/05/16 at 16:00 Dexamethasone (Decadron) 4 mg Q12 PO Last administered on 11/09/16 09:17; Admin Dose 4 MG; Start 11/08/16 at 21:00 Gabapentin (Neurontin) 100 mg TID PO Last administered on 11/09/16 09:14; Admin Dose 100 MG; Start 11/09/16 at 09:00 Assessment/Plan Additional Assessment/Plan Rehab- 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 Continue rehab therapies Acute pain syndrome;Neuropathic pain-improved Hypertension. Gastroesophageal reflux disease. History of gastrointestinal bleed. Diabetes mellitus. KLAUDIA STEVENSON MD November 09, 2016 11:26
--- NOTE | 2016-11-09 14:21 | CONS ---
Date/Time of Note Date/Time of Note DATE: 11/09/16 TIME: 14:19 Consult Date/Type/Reason Admit Date/Time November 02, 2016 at 13:56 Type of Consultation: Internal medicine Subjective Patient comfortable this morning blood pressure was on the low side so antihypertensive was held Objective Vital Signs Date Time Temp Pulse Resp B/P Pulse Ox O2 Delivery O2 Flow Rate FiO2 11/09/16 07:37 98.5 51 18 112/54 97 11/07/16 21:05 Room Air Intake and Output 11/08/16 11/08/16 11/09/16 15:00 23:00 07:00 Intake Total 900 ml 600 ml Output Total 0 ml Balance 900 ml 600 ml Exam PHYSICAL EXAMINATION: GENERAL: Well-nourished, well-developed lady, comfortable at rest, no acute distress. VITAL SIGNS: Within normal limits. Moist mucous membranes. Pupils equal and reactive to light. NECK: Supple, no JVD or lymphadenopathy. CARDIAC: S1, S2, no added sounds or murmurs. CHEST: Diminished air entry bilaterally. ABDOMEN: Soft, nontender. No guarding or rebound. EXTREMITIES: No cyanosis, clubbing. NEUROLOGIC: She has right upper extremity weakness. Results/Medications Medications Current Medications Amlodipine Besylate (Norvasc) 10 mg DAILY PO Last administered on 11/07/16 08: 57; Admin Dose 10 MG; Start 11/03/16 at 09:00 Atorvastatin Calcium (Lipitor) 10 mg DAILY@21 PO Last administered on 21:09; Admin Dose 10 MG; Start 11/02/16 at 21:00 Carvedilol (Coreg) 3.125 mg BID PO Last administered on 11/08/16 22:31; Admin Dose 3.125 MG; Start 11/02/16 at 21:00 Cholecalciferol (Vitamin D) 1,000 unit DAILY PO Last administered on 11/09/16 09:14; Admin Dose 1,000 UNIT; Start 11/03/16 at 09:00 Docusate Sodium (Colace) 200 mg DAILY PO Last administered on 11/09/16 09:14; Admin Dose 200 MG; Start 11/03/16 at 09:00 EZETIMIBE (Zetia) 10 mg HS PO Last administered on 11/08/16 21:09; Admin Dose 10 MG; Start 11/02/16 at 21:00 Acetaminophen/ Hydrocodone Bitart ([place] (5/325)) 1 tab Q6H PRN PO pain Last administered on 11/05/16 21:03; Admin Dose 1 TAB; Start 11/02/16 at 15:30 Losartan Potassium (Cozaar) 100 mg DAILY PO Last administered on 11/07/16 08: 56; Admin Dose 100 MG; Start 11/03/16 at 09:00 Pantoprazole (Protonix Tab) 40 mg DAILY@06 PO Last administered on 11/09/16 06 :04; Admin Dose 40 MG; Start 11/03/16 at 06:00 Senna (Senokot) 2 tab BID PO Last administered on 11/09/16 09:13; Admin Dose 2 TAB; Start 11/02/16 at 21:00 Sertraline HCl (Zoloft) 100 mg DAILY PO Last administered on 11/09/16 09:14; Admin Dose 100 MG; Start 11/03/16 at 09:00 Tramadol HCl (Ultram) 50 mg Q6H PRN PO PAIN Last administered on 11/08/16 21: 15; Admin Dose 50 MG; Start 11/02/16 at 15:30 Acetaminophen (Tylenol Tab) 650 mg Q4H PRN PO PAIN AND OR ELEVATED TEMP; Start 11/02/16 at 16:30 Bisacodyl (Dulcolax Supp) 10 mg DAILY PRN [place] CONSTIPATION; Start 11/02/16 at 16: 30 Magnesium Hydroxide (Milk Of Mag) 30 ml BID PRN PO CONSTIPATION; Start 11/02/16 at 16:30 Lactulose (Enulose) 20 gm DAILY PRN PO CONSTIPATION Last administered on 08:55; Admin Dose 20 GM; Start 11/02/16 at 16:30 Zolpidem Tartrate (Ambien) 5 mg HS PRN PO INSOMNIA Last administered on 21:56; Admin Dose 5 MG; Start 11/05/16 at 16:00 Dexamethasone (Decadron) 4 mg Q12 PO Last administered on 11/09/16 09:17; Admin Dose 4 MG; Start 11/08/16 at 21:00 Gabapentin (Neurontin) 100 mg TID PO Last administered on 11/09/16 09:14; Admin Dose 100 MG; Start 11/09/16 at 09:00 Assessment/Plan Chief Complaint/Hosp Course IMPRESSION AND PLAN: 1. 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 Will require continued physical therapy. 2. Hypertension. Continue current medications. 3. Diabetes mellitus. Continue current glycemic management. 4. DVT and GI prophylaxis. 5. Decreased steroids. Dexamethasone twice daily for the next couple days and then once a day and stop. Hold antihypertensives for low blood pressure If persistent hypotension may have a component of adrenal insufficiency Problems: NANETTE MEYERS MD, [facility] November 09, 2016 14:21
[2016-11-09] MEDS: ATORVASTATIN 10 MG TAB PO SCH (20:40)
[2016-11-09] MEDS: EZETIMIBE 10 MG TAB PO SCH (20:41)
[2016-11-09 20:58] VITALS: BP 126/57; RESP 18
[2016-11-09] MEDS ORDERED: GABAPENTIN 100 MG CAP PO SCH ×7 (21:00)
[2016-11-10] MEDS: PANTOPRAZOLE (EC) 40 MG TAB PO SCH (06:11)
[2016-11-10 07:35] VITALS: BP 121/57; RESP 18
[2016-11-10] MEDS ORDERED: GABAPENTIN 100 MG CAP PO SCH ×2 (09:00→11:30)
[2016-11-10] MEDS ORDERED: GABAPENTIN 100 MG CAP PO ONE (09:00)
[2016-11-10] MEDS: LOSARTAN 50 MG TAB PO SCH (09:00)
[2016-11-10] MEDS: AMLODIPINE 10 MG TAB PO SCH (09:00)
[2016-11-10] MEDS: SERTRALINE 100 MG TAB PO SCH (09:11)
[2016-11-10] MEDS: SENNA TAB PO SCH (09:11)
[2016-11-10] MEDS: DOCUSATE SODIUM 100 MG CAP PO SCH (09:12)
[2016-11-10] MEDS: CHOLECALCIFEROL 1,000 UNIT TAB PO SCH (09:12)
[2016-11-10] MEDS: DEXAMETHASONE 4 MG TAB PO SCH (09:13)
--- NOTE | 2016-11-10 13:01 | CONS ---
Date/Time of Note Date/Time of Note DATE: 11/10/16 TIME: 13:01 Consult Date/Type/Reason Admit Date/Time November 02, 2016 at 13:56 Type of Consultation: Internal medicine Subjective Patient comfortable this morning no new events Objective Vital Signs Date Time Temp Pulse Resp B/P Pulse Ox O2 Delivery O2 Flow Rate FiO2 11/10/16 07:35 98.3 56 18 121/57 97 11/07/16 21:05 Room Air Intake and Output 11/09/16 11/09/16 11/10/16 15:00 23:00 07:00 Intake Total 1200 ml 800 ml Output Total 1 ml Balance 1200 ml 799 ml Exam GENERAL: VITAL SIGNS: per chart NECK: Supple. No JVD or lymphadenopathy. CARDIAC EXAM: S1, S2. No added sounds or murmurs. CHEST: clear bilaterally, No added sounds, rales or wheezes ABDOMEN: Soft, nontender. No guarding or rebound. EXTREMITIES: No cyanosis, clubbing or edema. NEUROLOGIC: Generalized weakness. No focal deficits. Results/Medications Medications Current Medications Amlodipine Besylate (Norvasc) 10 mg DAILY PO Last administered on 11/07/16 08: 57; Admin Dose 10 MG; Start 11/03/16 at 09:00 Atorvastatin Calcium (Lipitor) 10 mg DAILY@21 PO Last administered on 20:40; Admin Dose 10 MG; Start 11/02/16 at 21:00 Carvedilol (Coreg) 3.125 mg BID PO Last administered on 11/09/16 20:42; Admin Dose 3.125 MG; Start 11/02/16 at 21:00 Cholecalciferol (Vitamin D) 1,000 unit DAILY PO Last administered on 11/10/16 09:12; Admin Dose 1,000 UNIT; Start 11/03/16 at 09:00 Docusate Sodium (Colace) 200 mg DAILY PO Last administered on 11/10/16 09:12; Admin Dose 200 MG; Start 11/03/16 at 09:00 EZETIMIBE (Zetia) 10 mg HS PO Last administered on 11/09/16 20:41; Admin Dose 10 MG; Start 11/02/16 at 21:00 Acetaminophen/ Hydrocodone Bitart ([place] (5/325)) 1 tab Q6H PRN PO pain Last administered on 11/05/16 21:03; Admin Dose 1 TAB; Start 11/02/16 at 15:30 Losartan Potassium (Cozaar) 100 mg DAILY PO Last administered on 11/07/16 08: 56; Admin Dose 100 MG; Start 11/03/16 at 09:00 Pantoprazole (Protonix Tab) 40 mg DAILY@06 PO Last administered on 11/10/16 06 :11; Admin Dose 40 MG; Start 11/03/16 at 06:00 Senna (Senokot) 2 tab BID PO Last administered on 11/10/16 09:11; Admin Dose 2 TAB; Start 11/02/16 at 21:00 Sertraline HCl (Zoloft) 100 mg DAILY PO Last administered on 11/10/16 09:11; Admin Dose 100 MG; Start 11/03/16 at 09:00 Tramadol HCl (Ultram) 50 mg Q6H PRN PO PAIN Last administered on 11/08/16 21: 15; Admin Dose 50 MG; Start 11/02/16 at 15:30 Acetaminophen (Tylenol Tab) 650 mg Q4H PRN PO PAIN AND OR ELEVATED TEMP Last administered on 11/10/16 09:11; Admin Dose 650 MG; Start 11/02/16 at 16:30 Bisacodyl (Dulcolax Supp) [address] CONSTIPATION; Start 11/02/16 at 16: 30 Magnesium Hydroxide (Milk Of Mag) 30 ml BID PRN PO CONSTIPATION; Start 11/02/16 at 16:30 Lactulose (Enulose) 20 gm DAILY PRN PO CONSTIPATION Last administered on 08:55; Admin Dose 20 GM; Start 11/02/16 at 16:30 Zolpidem Tartrate (Ambien) 5 mg HS PRN PO INSOMNIA Last administered on 21:56; Admin Dose 5 MG; Start 11/05/16 at 16:00 Dexamethasone (Decadron) 4 mg Q12 PO Last administered on 11/10/16 09:13; Admin Dose 4 MG; Start 11/08/16 at 21:00 Gabapentin (Neurontin) 200 mg HS PO Last administered on 11/09/16 20:39; Admin Dose 200 MG; Start 11/09/16 at 21:00 Gabapentin (Neurontin) 100 mg AM PO Last administered on 11/10/16t 09:12; Admin Dose 100 MG; Start 11/10/16 at 09:00 Assessment/Plan Chief Complaint/Hosp Course IMPRESSION AND PLAN: 1. 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 Will require continued physical therapy. 2. Hypertension. Continue current medications. 3. Diabetes mellitus. Continue current glycemic management. 4. DVT and GI prophylaxis. 5. Decreased steroids. Problems: NANETTE MEYERS MD, [facility] November 10, 2016 13:01
--- NOTE | 2016-11-10 17:46 | PN ---
DATE: 11/10/2016 PSYCHOLOGY - Individual session - [id number]. This is a followup on a patient who was seen last week. The patient was seen in bed. The patient r eports that she does feel like she is making progress and does feel better. The patient does say th at she still has pain in different parts of her body, but particularly her right wrist. The patient also said that she is still not sleeping. The patient is frustrated by this. I worked with the pa breanna supportively to try to help her see ways to calm down and relax that might help her with her s leep, as well as with her underlying level of anxiety. Dictated By: EUNICE HARTLEY PHD MOLLY/AMERICA Conf#: [id number] DID#: [id number]
[2016-11-11] MEDS ORDERED: DEXAMETHASONE 4 MG TAB PO SCH (09:00)
== END 2016-11-10 13:15 | disposition home health service (06) | DRG 920 ==
LOC: VRC 13:56
PROVIDERS: ADMIT Physical Medicine & Rehabilitation; ATTEND Internal Medicine Pulmonary Disease
PROC: F07Z5FZ Bed Mobility Treatment using Assistive, Adaptive, Supportive or Protective Equipment (ICD-10-PCS; principal; 2016-11-02)
PROC: F07Z8FZ Transfer Training Treatment using Assistive, Adaptive, Supportive or Protective Equipment (ICD-10-PCS; 2016-11-02)
PROC: F07Z9FZ Gait Training/Functional Ambulation Treatment using Assistive, Adaptive, Supportive or Protective Equipment (ICD-10-PCS; 2016-11-02)
PROC: F08Z2FZ Grooming/Personal Hygiene Treatment using Assistive, Adaptive, Supportive or Protective Equipment (ICD-10-PCS; 2016-11-02)
PROC: F08Z0FZ Bathing/Showering Techniques Treatment using Assistive, Adaptive, Supportive or Protective Equipment (ICD-10-PCS; 2016-11-02)
PROC: F08Z1FZ Dressing Techniques Treatment using Assistive, Adaptive, Supportive or Protective Equipment (ICD-10-PCS; 2016-11-02)
DX: G97.51 Postprocedural hemorrhage of a nervous system organ or structure following a nervous system procedure (principal); F33.1 Major depressive disorder, recurrent, moderate; I10 Essential (primary) hypertension; G89.18 Other acute postprocedural pain; G62.9 Polyneuropathy, unspecified; R53.1 Weakness; K21.9 Gastro-esophageal reflux disease without esophagitis; E11.9 Type 2 diabetes mellitus without complications; E78.5 Hyperlipidemia, unspecified; Y84.8 Other medical procedures as the cause of abnormal reaction of the patient, or of later complication, without mention of misadventure at the time of the procedure
CPT/HCPCS: 80053; 81003; 85025; 87081; 87086; 92610; 93005; 97110; 97116; 97150; 97163; 97167; 97530; 97535